=== PATIENT | male | born 1950 | race Caucasian/White ===

== ENCOUNTER → 2017-12-19 11:33 | Outpatient (CLI) | payer MEDICARE, SELFPAY | PROVIDERS: Family Provider Family Medicine; PCP Family Medicine; Visit Provider Family Medicine | DX: E03.9 Hypothyroidism, unspecified (principal) | CPT/HCPCS: 36415; 84443 ==

== ENCOUNTER → 2018-02-03 10:02 | Outpatient (CLI) | payer MEDICARE, SELFPAY ==
[2018-02-03 11:45] LABS: PSA,Total- Diagnostic < 0.01 ng/mL (0.0-4.0)
== END ==
PROVIDERS: Family Provider Family Medicine; PCP Family Medicine; Visit Provider Urology
DX: C61 Malignant neoplasm of prostate (principal)
CPT/HCPCS: 36415; 84153

== ENCOUNTER → 2018-03-19 07:44 | Outpatient (CLI) | payer MEDICARE, SELFPAY ==
[2018-03-19 10:47] LABS: Anion Gap 6 (5-15); BUN 18 mg/dL (7-18); BUN/Creat Ratio 17.3 RATIO (10-20); Chloride 105 mmol/L (98-107); Cholesterol 125 mg/dL (200); Creatinine, Serum 1.04 mg/dL (0.70-1.30); EST Glomerular Filtration Rate 75 mL/min (>60); Est Glom Filt Rate - Afr Amer 91 mL/min (>60); Glucose 99 mg/dL (74-106); High Density Lipoprotein 37 mg/dL; Potassium 3.3 mmol/L (3.5-5.1); Sodium Level 141 mmol/L (136-145); Triglycerides 83 mg/dL; Very Low Density Lipoprotein 17 mg/dL (5-40)
[2018-03-19 11:39] LABS: Hemoglobin A1c 5.9 % (4.2-6.3)
== END ==
PROVIDERS: Family Provider Family Medicine; PCP Family Medicine; Visit Provider Family Medicine
DX: Z00.00 Encounter for general adult medical examination without abnormal findings (principal); I10 Essential (primary) hypertension; E03.9 Hypothyroidism, unspecified
CPT/HCPCS: 36415; 80048; 80061; 83036; 84443

== ENCOUNTER → 2018-08-04 09:27 | Outpatient (CLI) | payer MEDICARE, SELFPAY ==
[2018-08-04 11:29] LABS: PSA,Total- Diagnostic < 0.01 ng/mL (0.0-4.0)
== END ==
PROVIDERS: Family Provider Family Medicine; PCP Family Medicine; Referring Provider Urology; Visit Provider Urology
DX: C61 Malignant neoplasm of prostate (principal)
CPT/HCPCS: 36415; 84153

== ENCOUNTER 2018-09-14 10:52 | Inpatient (IN) | payer MEDICARE, SELFPAY ==
[2018-08-27 08:36] VITALS: BP 138/88; PULSE 89; RESP 16; TEMP 36.6; O2SAT 95; BMI 27.1
--- NOTE | 2018-08-27 08:43 | SDCEKG_ITS ---
Test Reason : Blood Pressure : / mmHG Vent. Rate : 073 BPM Atrial Rate : 073 BPM P-R Int : 160 ms QRS Dur : 106 ms QT Int : 368 ms P-R-T Axes : 056 -19 067 degrees QTc Int : 405 ms Normal sinus rhythm Moderate voltage criteria for LVH, may be normal variant Borderline ECG Confirmed by ANITA ALLEN, HERACLIO ([id number]), senior editor ANA GRAFF ([id number]) on 08/31/2018 3:52:40 PM Referred By: Geovanny Graff Confirmed By:HERACLIO HOWARD MD
--- NOTE | 2018-08-27 09:10 | RAD_ITS ---
STUDY: X-RAY CHEST REASON FOR EXAM: Male, 67 years old. Preoperative evaluation. TECHNIQUE: PA and lateral views of the chest. COMPARISON: Comparison is made with prior examination dated November 05, 2016. FINDINGS: Hyperinflation. The lungs are clear. There is no demonstrated pleural abnormality. Normal size heart. Normal mediastinum and carlo. Normal visualized pulmonary arteries. There is atherosclerotic tortuosity of the aortic arch and descending thoracic aorta. There are diffuse degenerative changes of the visualized thoracic spine. Normal visualized ribs, clavicles, and shoulders. There is no demonstrated abnormality of the visualized soft tissue structures of the upper abdomen. RAD/Chest PA and Lateral IMPRESSION: No acute abnormality is seen. Electronically Signed: Pardeep Nice MD at 9:43 EDT Tel [phone], Service support ,
[2018-08-27 09:13] LABS: Hematocrit 43.7 % (40-54); Hemoglobin 14.4 g/dl (13.0-16.5); Mean Corpuscular Hgb 30.3 pg (27.0-32.0); Mean Corpuscular Volume 91.8 fL (80-94); Mean Platelet Vol. 12.5 fl (6.2-12.0); Platelet Count 244 K/mm3 (150-450); RBC Distribution Width CV 13.9 % (11.6-14.6); RBC Distribution Width SD 46.4 fl (35.1-43.9); Red Blood Count 4.76 M/mm3 (4.6-6.2); White Blood Count 6.1 K/mm3 (4.4-11.0)
[2018-08-27 09:16] LABS: Scan Indicated on CBC? Y/N NO
[2018-08-27 09:38] LABS: Anion Gap 7 (5-15); BUN 16 mg/dL (7-18); BUN/Creat Ratio 16.4 RATIO (10-20); Calcium,Total 9.4 mg/dL (8.5-10.1); Chloride 105 mmol/L (98-107); Creatinine, Serum 0.97 mg/dL (0.70-1.30); EST Glomerular Filtration Rate 81 mL/min (>60); Est Glom Filt Rate - Afr Amer 98 mL/min (>60); Glucose 136 mg/dL (74-106); Potassium 3.4 mmol/L (3.5-5.1); Sodium Level 142 mmol/L (136-145)
--- NOTE | 2018-09-09 11:55 | CASEMGMT ---
Call placed to patient ([phone]) to discuss discharge needs after upcoming surgery. No answer, voicemail left. Helen Younger LPN Clinical Support
[2018-09-14] VITALS (7 sets, daily range): BP systolic 126–153; BP diastolic 55–82; PULSE 69–89; RESP 12–18; TEMP 35.9–37.1; O2SAT 95–100; BMI 27.1
[2018-09-14] MEDS: Acetaminophen 500 MG Tablet 1000 MG PO ×2 (11:38→22:01)
[2018-09-14] MEDS: oxyCODONE HCl Cr 10 MG Tablet PO (11:38)
[2018-09-14 11:55] LABS: Bedside Glucose 101 mg/dL (70-110)
--- NOTE | 2018-09-14 13:00 | FEM._PTH ---
PATIENT: GLENDA DERAS LOC: MS3 U#:[id number] AGE/SX: 67/M [place] [facility] [place]: Dr. Nevin Pedro MD : 1950 BED: 1 DIS: 09/16/2018 SPEC #: [id number] RECD: 09/14/18 16:03 STATUS: JENNIFER REQ #: [id number] JEFF: 09/14/18 13:[address]: Geovanny Graff DEPT: SURGICAL PATHOLOGY RECD BY: Reg Méndez ENTERED: 09/15/18 11:43 SP TYPE: FEM HEAD OTHR DR: MD Dr. Nevin Alvarez MD Dr. Paul Nielsen, MD Dr. Rodney Miller, MD Tissues: Hip, NOS Procedures: Decalcification bone/plaque Surgery Specimen Level IV Comments: @ Ordering doctor for DEC edited from to [email or web address] Gates by LINWOOD at 09/15/18 1615 @ Ordering doctor for SUIV edited from to [email or web address] by LINWOOD at 09/15/18 1615 @ Submitting doctor edited from to DR.[email or web address] Gates by LINWOOD at 09/15/18 1615 HEADER OPERATION: Total hip replacement PRE-OP DIAGNOSIS: Osteoarthritis left hip TISSUE SUBMITTED: Femoral head and tissue MICROSCOPIC DIAGNOSIS Left femoral head and tissue, total hip replacement/resection: Femoral head with degenerative osteoarthritic changes. LYNETTE:idris 09/21/18 MICROSCOPIC DESCRIPTION Slides are reviewed. GROSS DESCRIPTION Received in fixative is one container labeled with the patient's name and designated femoral head and tissue. The specimen consists of a justice femoral head measuring 5 x 5 x 4.5 cm. The articular surface displays prominent osteophyte formation, eburnation and bone erosion. Also present in the container are detached pieces of tissue consisting entirely of bone reamlngs measuring in aggregate 7 x 7 x 3 cm. Pattern Wheel Maker sections are submitted in two cassettes after decalcification as follows: 1 - bone reamings, 2 - femoral head. / LYNETTE:idris 09/15/18 TC:5 CPT: 16166, 32605
[2018-09-14] MEDS: Cefazolin 2 GM in 0.9% Normal Saline 100 ML IV (13:51)
--- NOTE | 2018-09-14 15:35 | RAD_ITS ---
STUDY: X-RAY - PELVIS AND LEFT HIP REASON FOR EXAM: Male, 67 years old. Postop left hip. TECHNIQUE: 2 views of the pelvis and hip. COMPARISON: AP pelvis with 3 additional images of left hip February 2017. FINDINGS: There is a non-specific bowel gas pattern. There are multiple calcified phleboliths. Normal visualized bilateral sacroiliac joints and sacrum. There are cortical and enthesophytes at the lateral margins of the bilateral iliac wings. Normal bilateral superior and inferior pubic rami. Normal pubic symphysis. Normal bilateral ischial tuberosities. Stone noted of osteoarthritic degenerative change of the right hip. The patient has undergone left total hip arthroplasty. Following resection of the left femoral head and neck, a metal bipolar hip prosthesis was placed. The acetabular and femoral components appear well seated, and in anatomic alignment. There is stable osteoarthritic spur formation of the acetabular rim. Gas lucencies overlapping the upper consistent with recent surgery. There are numerous metal skin jose along the lateral soft tissues. No demonstrated acute fracture. RAD/Hip Min 2 Views (Portable) IMPRESSION: Status post left total hip arthroplasty. Electronically Signed: Ulisses Patton MD at 16:50 EST , Service support ,
[2018-09-14 16:16] LABS: Bedside Glucose 90 mg/dL (70-110)
--- NOTE | 2018-09-14 16:41 | CON.PCM_ITS ---
Problem List (1) Status post total replacement of left hip Status: Acute (2) History of prostate cancer Status: Chronic (3) History of renal cell carcinoma Status: Chronic (4) Hyperlipidemia Status: Chronic (5) Hypertension Status: Chronic (6) Hypothyroidism Status: Chronic (7) Type 2 diabetes mellitus Status: Chronic Reason for Consult Date of Consultation: 09/14/18 Reason for Consultation: Postoperative medical management. History of Present Illness: The patient is a 67 year old M with past medical history as mentioned above who admitted today for elective total left hip replacement and I am seeing this patient in consultation for postoperative medical management. At this time, patient complained of left hip pain which is rated about 4-5 out of 10 in severity. He denies any other complaints. He denied chest pain or shortness of breath. He denied abdominal pain, nausea or vomiting. He denies cough or sputum production. He denies urinary symptoms. He had a history of type 2 diabetes mellitus and he has been on metformin and his blood sugar has been under control. His hemoglobin A1c was 6% on August 27, 2018. He had a history of renal cell carcinoma status post left nephrectomy and his kidney function has been stable. He had a story of hypertension and his blood pressure has been under control with Norvasc and enalapril. At this time, his vital signs are stable. His preoperative routine blood work that was done on August 27, 2018 reviewed and was unremarkable. Past Medical History Past Medical History (Chronic Problems): Chronic Problems History of prostate cancer (Chronic) History of renal cell carcinoma (Chronic) Hyperlipidemia (Chronic) Type 2 diabetes mellitus (Chronic) Hypothyroidism (Chronic) Hypertension (Chronic) Allergies Sulfa (Sulfonamide Antibiotics) Allergy (Verified 09/14/18 11:19) Rash Home Medications: Ambulatory Orders Medication Instructions Recorded Amlodipine Besylate [Norvasc] 10 mg PO DAILY 11/05/16 Enalapril Maleate [Vasotec] 20 mg PO BID 11/05/16 Levothyroxine [Synthroid] 50 mcg PO QHS 11/05/16 Multivitamin [Multiple Vitamins] 1 each PO DAILY 11/05/16 Calcium Carbonate/Vitamin D3 1 each PO DAILY 11/13/16 [Calcium 600-Vit D3 200 Tablet] Acetaminophen [Tylenol Extra 500 - 3,000 mg PO DAILY 08/27/18 Strength] Atorvastatin Calcium [Lipitor] 10 mg PO DAILY 08/27/18 Metformin HCl [Glucophage Xr] 500 mg PO DAILY 08/27/18 Surgical History: - - Left nephrectomy, back surgery. Psychiatric History: No pertinent psych hx Lives: Spouse/ Significant Other Smoking Status: Never smoker Alcohol: None Drugs: None - *Family History Maternal History Items: - - No maternal history of hypertension, diabetes or heart disease. Paternal History Items: - - No paternal history of hypertension, diabetes or heart disease. Review of Systems Constitutional: Denies: Anorexia, Chills, Fever, Weakness Eyes: Denies: Blurred vision, Double vision, Drainage, Redness HEENT: Denies: Difficulty Hearing, Ear Pain, Eye Pain, Nasal Congestion, Sore Throat Cardiovascular: Denies: Chest Pain, Chest Pressure, Chest Tightness, Heaviness, Light Headedness, Palpitations, Syncope Respiratory: Denies: Cough, Pleuritic Pain, Shortness of Breath, Sputum production, Wheezing Gastrointestinal: Denies: Abdominal Pain, Constipation, Diarrhea, Nausea, Vomiting Genitourinary: Denies: Dysuria, Frequency, Hematuria Musculoskeletal: Reports: Joint Pain. Denies: Arm Pain, Back Pain, Foot Pain Skin: Denies: Dryness, Rash Neurological: Denies: Balance problems, Double vision, Change in Speech, Slurred speech, Confusion, Headaches, Incoordination, Numbness Psychiatric: Denies: Anxiety, Depression Endocrine: Denies: Change in Body Habitus, Polydipsia Patient Problems: Active and Suspected Problems Status post total replacement of left hip (Acute) - Physical Exam General: Alert, Oriented x3, Cooperative, No apparent distress HEENT: Atraumatic, PERRLA, EOMI, Normocephalic Oral: Moist Mucosa, No Gingival or Mucosal Lesions/ Ulcerations Neck: Supple, No JVD, Negative Carotid Bruits, Trachea Midline, Thyroid Normal Size and Texture Lungs: Clear to auscultation, Normal air movement, No rhonchi, No wheeze, No rales Cardiovascular: Regular rate, Regular Rhythm, Normal S1, Normal S2, No murmurs, PMI Normal Abdomen: Bowel Sounds Present, Soft, Non Tender, Non-Distended, No Hepato- splenomegaly Extremities: No clubbing, No cyanosis, No edema Skin: No rashes, No breakdown Lymphatic: No Cervical, Supraclavicular, or Inguinal Adenopathy Neurological: Cranial nerves II-XII grossly intact, Motor Exam 5/5 strength throughout Psych/Mental Status: Normal Affect, Appropriate, Alert and oriented to time, place, person, mood and affect Vital Signs Temp Pulse Resp BP Pulse Ox 97.0 F L 81 18 141/74 H 100 09/14/18 16:00 09/14/18 16:00 09/14/18 16:00 09/14/18 16:00 09/14/18 16:00 Oxygen Delivery Method Room Air Weight: 162 lb 14.746 oz Body Mass Index (BMI) 27.1 Finger Stick Blood Glucose 90 Intake and Output for Last 24 Hours 09/12/18 09/13/18 09/14/18 23:59 23:59 23:59 Intake Total 1400 / 1400 Balance 1400 / 1400 POC Glucose 09/14/18 09/14/18 16:02 11:34 POC Glucose 90 101 Assessment/Plan All Active Problems Status post total replacement of left hip (Acute) This is a 67 years old male patient admitted for elective left total hip replacement and I am seeing this patient in consultation for postoperative medical management. #1 status post left total hip replacement: This was an electively for left hip osteoarthritis. Preoperative routine blood work was unremarkable. At this time, his vital signs are stable. He is on IV cefazolin for perioperative prophylaxis. Started on MS Contin twice daily and OxyIR as needed for pain. CBC and BMP ordered for tomorrow. Orthopedic surgery is managing. #2 type 2 diabetes mellitus: Blood sugars seem to be under control. Hemoglobin A1c was 6% on August 27, 2018. Plan to continue metformin, Accu-Cheks, insulin sliding scale. #3 hypertension: Blood pressure stable, continue Norvasc and lisinopril. #4 history of prostate cancer: Status post surgery, stable, in remission. #5 history of renal cell carcinoma: Status post left nephrectomy, stable, in remission. #6 hypothyroidism: Stable, TSH was normal on August 27, 2018, continue levothyroxine. #7 hyperlipidemia: Continue statins. #8 DVT prophylaxis: SCDs. This note was generated with Funky Androidation software. It may contain incorrect words, spelling, and punctuation that were not noted in checking the note before signing. Code Visit Inpatient E&M: 89886 Init Hosp L2
[2018-09-14] MEDS: Ketorolac 15 MG/ML Vial IV (17:20)
[2018-09-14 17:30] LABS: Bedside Glucose 141 mg/dL (70-110)
[2018-09-14] MEDS: Lactated Ringers 1,000 ML 125 ML IV (18:44)
[2018-09-14] MEDS: Cefazolin 1 GM/50 ML BAG IV (20:00)
[2018-09-14] MEDS: Aspirin 325 MG Tablet PO (21:59)
[2018-09-14] MEDS: Senna/Docusate Sodium 1 Tablet 2 TABLET PO (21:59)
[2018-09-14] MEDS: Levothyroxine 50 MCG Tablet PO (22:00)
[2018-09-14] MEDS: morphine SR 15 MG Tablet PO (22:00)
[2018-09-14] MEDS: Lisinopril 20 MG Tablet PO (22:00)
[2018-09-14 22:11] LABS: Bedside Glucose 109 mg/dL (70-110)
[2018-09-15] MEDS: 0.9% NaCl Peripheral Flush Adult/Peds IV (00:13)
[2018-09-15] MEDS: Ondansetron 4 MG/2 ML Vial IV (00:13)
[2018-09-15] MEDS: Cefazolin 1 GM/50 ML BAG IV ×2 (02:33→07:38)
[2018-09-15 02:38] VITALS: BP 118/65; PULSE 74; RESP 16; TEMP 36.7; O2SAT 97
[2018-09-15] MEDS: Acetaminophen 500 MG Tablet 1000 MG PO ×3 (06:34→21:56)
[2018-09-15 06:41] LABS: Bedside Glucose 126 mg/dL (70-110)
[2018-09-15 06:55] LABS: Hematocrit 32.9 % (40-54); Hemoglobin 10.9 g/dl (13.0-16.5); Mean Corp Hgb Conc 33.1 g/gl (32-36); Mean Corpuscular Hgb 30.8 pg (27.0-32.0); Mean Corpuscular Volume 92.9 fL (80-94); Mean Platelet Vol. 12.8 fl (6.2-12.0); Platelet Count 182 K/mm3 (150-450); RBC Distribution Width CV 14.2 % (11.6-14.6); RBC Distribution Width SD 46.4 fl (35.1-43.9); Red Blood Count 3.54 M/mm3 (4.6-6.2); White Blood Count 10.3 K/mm3 (4.4-11.0)
--- NOTE | 2018-09-15 06:59 | PCM.OP.BLANK ---
Operative Report Date of Procedure: 09/14/18 Preoperative diagnosis: Left hip primary osteoarthritis Postoperative diagnosis: Same Operation: [Left] total hip replacement surgery Surgeon: Dr. Geovanny Graff MD Machine Clothing Worker: Ashia Gonzales PA-C Anesthesia: Spinal Anesthesiologist Dr. Jackson Special medications: IV [Ancef], IV Tranexamic acid Indications for surgery : Patient is a [ 67]-year-old male] with a long-standing history of [left] severe hip pain that has failed adequate nonoperative treatment. Due to persistent pain and disability, they decided to proceed with hip replacement surgery. Appropriate informed consent was obtained and signed. Appropriate medical workup was performed preoperatively and patient was deemed safe for surgery by the anesthesia department as well. gynecological assistant, physician retail administrative assistant, was utilized throughout the entire procedure. They were vital in helping with patient positioning, holding of retractors, exposing the tissues adequately for safe completion of the procedure including cutting of the bone, helping package clerk appropriate alignment and sizing of the components, implantation of the components, as well as wound closure, bandage application, and safe patient transfer. Without resident assistant cna, physician retail administrative assistant, surgical time would have been significantly increased, and surgical outcome would have been less optimal. Operative findings: Patient had severe arthritis of the involved hip joint. They underwent a small posterior approach to the hip. We utilized a size [6 press-fit Accolade 2 stem] 127 degree neck angle, a press fit acetabular component size [52] cluster, Trident X3 10? hooded polyethylene liner with a 36 mm inner diameter, a Biolox ceramic femoral head size [36] with a +0 neck length. This reproduced their anatomy nicely. Clinically good leg lengths were noted. Good hip stability through range of motion with no undue pistoning. Standard wound closure in layers, followed by jose, followed by Mepilex dressing Details of procedure: Patient was taken to the operating room and transferred to the operating table. Given appropriate anesthetic agent by that department. Patient was then rolled into a lateral decubitus position with the involved painful hip up in the air. Appropriate timeouts had been performed. Hip had been appropriately marked with my initials. Padded anterior and posterior position was utilized. Axillary roll placed. MARTY hose and SCDs on the nonoperative limb utilized throughout the procedure. Tranexamic acid and IV antibiotics given preoperatively. Operative lower extremity was prepped padded and draped in the usual orthopedic sterile fashion for the procedure. I injected the pain relieving solution in the standard sterile technique of the soft tissues of the hip carefully. Incision was made curving over the tip of the greater trochanter posteriorly. Full thickness skin flaps are raised down on the fascia johnathan. Fascia johnathan was opened in length with our incision. Charnley self-retaining hip retractor was carefully placed by the surgeon. Leg was appropriately rotated and held by the retail administrative assistant. Retractor was used to lift the abductors anteriorly to visualize the piriformis tendon and external rotators. Area was infiltrated with pain relieving cocktail. Piriformis tendon and external rotators released off the greater trochanter with the Bovie. Tagging suture was placed in each of these separately. We then split the tissue superior to the piriformis tendon through capsule and onto the pelvis. Acetabular labrum was also divided. With traction and manipulation arthritic femoral head was dislocated from the acetabulum. Retractors were carefully placed around the femoral neck. Cutting guide was utilized to map out the proposed cut approximately 1 fingerbreadth above the lesser trochanter. This femoral neck cut was carried out with a saw. Arthritic femoral head removed and measured and inspected. Inferior acetabular retractor was placed by the surgeon, held by the retail administrative assistant. Bone hook utilized to pull the proximal femur anteriorly. Labrum removed from about the acetabulum a long knife. Tissue removed from the depth of the acetabulum with the Bovie. Arthritic acetabulum was noted. We began reaming with the appropriate sized reamer based on the measurement of the femoral head. Reaming was done with 45? of abduction, 20? of anteversion, reproducing there anatomy. Reaming was done incrementally up to the appropriate size creating a smooth cylindrical acetabulum and was done down to healthy bone. Trial acetabular component 1 millimeters smaller than the largest reamer was utilized with the outrigger device. Appropriate abduction and anteversion confirmed as well as size and position of cup. We irrigated with bulb syringe saline. Appropriate acetabular opponent was opened and hammered into position with the outrigger device, with 45? of abduction and 20 degrees of anteversion. We could see through the hole in the cup it was adequately down onto the bone in the pelvis. Good stability was noted. Trial liner with a 10? florian was appropriately positioned. Any anterior and/ or posterior osteophytes removed with an osteotome, rondure. Acetabular retractors removed. A proximal femoral elevator utilized. Held by the retail administrative assistant. We used a sharp awl entering down inside the bone of the proximal femur. Utilized the hollie cutting osteotome in the proximal lateral greater trochanteric region. The fragment removed. Broaching was then done from the smallest broach, upto the appropriate size. Small nondisplaced fracture of the very proximal extent of the femur posteriorly noted not extending into the calcar and not extending below the trochanter noted. good stability of the size 6 broach was confirmed. We then trialed the construct with a standard neck length and appropriate sized femoral head on 127? angle neck. We were happy with the construct. Good stability to flexion, rotation by the retail administrative assistant. At this point trials removed. I now placed the appropriate polyethylene acetabular liner into a clean dry previously placed shell. This was hammered into position. Suction device was used to confirm its stability. We now exposed the proximal femur with appropriate retractors in place, held by the retail administrative assistant, actual femoral stem was checked, opened, and then hammered into the proximal femur and seated down to a similar position as the trial had. We now again trialed appropriate neck length upon. It was then opened. Now impacted the appropriate sized femoral head, neck construct onto the clean dried trunion. Was noted to be stable. Hip was inspected, and joint was reduced for a final time. Good hip stability and leg lengths noted. This was then irrigated with saline and cleaned. Next the remainder of the pain relieving solution was injected carefully throughout the soft tissues of the hip joint. Closure was carried out with a combination of #1 Vicryl, running #2 strata fix in the fascia johnathan, followed by mid layer #1 Vicryl with #1 strata fix running. Next running 0 strata fix, followed by skin jose, Xeroform, Mepilex dressing. We placed MARTY hose and SCD on the operative leg. Patient awoken from the anesthetic and transferred back to room bed in recovery room in satisfactory condition. Patient will be admitted for pain management, PT, IV antibiotics, medication for DVT prevention. Hospitalist consulted for postoperative medical management. Hopeful discharge to home in 1-3 days This note was generated with Kabbee dictation software. It may contain incorrect words, spelling, and punctuation that were not noted in checking the note before signing.
[2018-09-15 07:02] LABS: Scan Indicated on CBC? Y/N NO
--- NOTE | 2018-09-15 07:05 | OP.PCM_ITS ---
Operative Report Date of Procedure: 09/14/18 Preoperative diagnosis: Left hip primary osteoarthritis Postoperative diagnosis: Same Operation: [Left] total hip replacement surgery Surgeon: Dr. Geovanny Grfaf MD Product Development Specialist: Ashia Gonzales PA-C Anesthesia: Spinal Anesthesiologist Dr. Jackson Special medications: IV [Ancef], IV Tranexamic acid Indications for surgery : Patient is a [ 67]-year-old male] with a long-standing history of [left] severe hip pain that has failed adequate nonoperative treatment. Due to persistent pain and disability, they decided to proceed with hip replacement surgery. Appropriate informed consent was obtained and signed. Appropriate medical workup was performed preoperatively and patient was deemed safe for surgery by the anesthesia department as well. medical billing assistant, physician accounting manager assistant controller, was utilized throughout the entire procedure. They were vital in helping with patient positioning, holding of retractors, exposing the tissues adequately for safe completion of the procedure including cutting of the bone, helping metrology technician appropriate alignment and sizing of the components, implantation of the components, as well as wound closure, bandage application, and safe patient transfer. Without surgical elastic knitter hand frame, physician accounting manager assistant controller, surgical time would have been significantly increased, and surgical outcome would have been less optimal. Operative findings: Patient had severe arthritis of the involved hip joint. They underwent a small posterior approach to the hip. We utilized a size [6 press-fit Accolade 2 stem] 127 degree neck angle, a press fit acetabular component size [52] cluster, Trident X3 10? hooded polyethylene liner with a 36 mm inner diameter, a Biolox ceramic femoral head size [36] with a +0 neck length. This reproduced their anatomy nicely. Clinically good leg lengths were noted. Good hip stability through range of motion with no undue pistoning. S tandard wound closure in layers, followed by jose, followed by Mepilex dressing Details of procedure: Patient was taken to the operating room and transferred to the operating table. Given appropriate anesthetic agent by that department. Patient was then rolled into a lateral decubitus position with the involved painful hip up in the air. Appropriate timeouts had been performed. Hip had been appropriately marked with my initials. Padded anterior and posterior position was utilized. Axillary roll placed. MARTY hose and SCDs on the nonoperative limb utilized throughout the procedure. Tranexamic acid and IV antibiotics given preoperatively. Operative lower extremity was prepped padded and draped in the usual orthopedic sterile fashion for the procedure. I injected the pain relieving solution in the standard sterile technique of the soft tissues of the hip carefully. Incision was made curving over the tip of the greater trochanter posteriorly. Full thickness skin flaps are raised down on the fascia johnathan. Fascia johnathan was opened in length with our incision. Charnley self-retaining hip retractor was carefully placed by the surgeon. Leg was appropriately rotated and held by the accounting manager assistant controller. Retractor was used to lift the abductors anteriorly to visualize the piriformis tendon and external rotators. Area was infiltrated with pain relieving cocktail. Piriformis tendon and external rotators released off the greater trochanter with the Bovie. Tagging suture was placed in each of these separately. We then split the tissue superior to the piriformis tendon through capsule and onto the pelvis. Acetabular labrum was also divided. With traction and manipulation arthritic femoral head was dislocated from the acetabulum. Retractors were carefully placed around the femoral neck. Cutting guide was utilized to map out the proposed cut approximately 1 fingerbreadth above the lesser trochanter. This femoral neck cut was carried out with a saw. Arthritic femoral head removed and measured and inspected. Inferior acetabular retractor was placed by the surgeon, held by the accounting manager assistant controller. Bone hook utilized to pull the proximal femur anteriorly. Labrum removed from about the acetabulum a long knife. Tissue removed from the depth of the acetabulum with the Bovie. Arthritic acetabulum was noted. We began reaming with the appropriate sized reamer based on the me asurement of the femoral head. Reaming was done with 45? of abduction, 20? of anteversion, reproducing there anatomy. Reaming was done incrementally up to the appropriate size creating a smooth cylindrical acetabulum and was done down to healthy bone. Trial acetabular component 1 millimeters smaller than the largest reamer was utilized with the outrigger device. Appropriate abduction and anteversion confirmed as well as size and position of cup. We irrigated with bulb syringe saline. Appropriate acetabular opponent was opened and hammered into position with the outrigger device, with 45? of abduction and 20 degrees of anteversion. We could see through the hole in the cup it was adequately down onto the bone in the pelvis. Good stability was noted. Trial liner with a 10? florian was appropriately positioned. Any anterior and/ or posterior osteophytes removed with an osteotome, rondure. Acetabular retractors removed. A proximal femoral elevator utilized. Held by the accounting manager assistant controller. We used a sharp awl entering down inside the bone of the proximal femur. Utilized the hollie cutting osteotome in the proximal lateral greater trochanteric region. The fragment removed. Broaching was then done from the smallest broach, upto the appropriate size. Small nondisplaced fracture of the very proximal extent of the femur posteriorly noted not extending into the calcar and not extending below the trochanter noted. good stability of the size 6 broach was confirmed. We then trialed the construct with a standard neck length and appropriate sized femoral head on 127? angle neck. We were happy with the construct. Good stability to flexion, rotation by the accounting manager assistant controller. At this point trials removed. I now placed the appropriate polyethylene acetabular liner into a clean dry previously placed shell. This was hammered into position. Suction device was used to confirm its stability. We now exposed the proximal femur with appropriate retractors in place, held by the accounting manager assistant controller, actual femoral stem was checked, opened, and then hammered into the proximal femur and seated down to a similar position as the trial had. We now again trialed appropriate neck length upon. It was then opened. Now impacted the appropriate sized femoral head, neck construct onto the clean dried trunion. Was noted to be stable. Hip was inspected, and joint was reduced for a final time. Good hip stability and leg lengths noted. This was then irrigated with saline and cleaned. Next the remainder of the pain relieving solution was injected carefully throughout the soft tissues of the hip joint. Closure was carried out with a combination of #1 Vicryl, running #2 strata fix in the fascia johnathan, followed by mid layer #1 Vicryl with #1 strata fix running. Next running 0 strata fix, followed by skin jose, Xeroform, Mepilex dressing. We placed MARTY hose and SCD on the operative leg. Patient awoken from the anesthetic and transferred back to room bed in recovery room in satisf actory condition. Patient will be admitted for pain management, PT, IV antibiotics, medication for DVT prevention. Hospitalist consulted for postoperative medical management. Hopeful discharge to home in 1-3 days This note was generated with [employer] software. It may contain incorrect words, spelling, and punctuation that were not noted in checking the note before signing.
[2018-09-15 07:07] LABS: Anion Gap 8 (5-15); BUN 13 mg/dL (7-18); BUN/Creat Ratio 14.8 RATIO (10-20); Chloride 103 mmol/L (98-107); Creatinine, Serum 0.88 mg/dL (0.70-1.30); EST Glomerular Filtration Rate 91 mL/min (>60); Est Glom Filt Rate - Afr Amer 110 mL/min (>60); Estimated Creatinine Clearance 67.27 ml/min; Glucose 118 mg/dL (74-106); Potassium 3.4 mmol/L (3.5-5.1); Sodium Level 138 mmol/L (136-145)
--- NOTE | 2018-09-15 07:20 | PCM.PN.ORT ---
Patient Problems: Active and Suspected Problems Status post total replacement of left hip (Acute) Subjective: Patient is postoperative day #1 from left total hip replacement. He is feeling well. Pain is controlled. Denies chest pain or shortness of breath. Denies productive cough. Patient does not feel safe going home today. He has more help coming tomorrow. He does not think his can manage him today. His calf pain or swelling. Objective: Left hip bandage is on clean and dry. No obvious blood on the bandage. No severe swelling about the hip. Leg lengths are clinically equal. No calf pain or swelling. Negative Homans sign. Good active motion toes and ankles. X-rays AP pelvis and lateral of left hip shows a press-fit left total hip replacement in good position without obvious loosening failure or fracture. X-ray report reviewed Laboratory work and vital signs reviewed Note from the hospitalist access consultant reviewed - Physical Exam Vital Signs Temp Pulse Resp BP Pulse Ox 98.1 F 74 16 118/65 97 09/15/18 02:38 09/15/18 02:38 09/15/18 02:38 09/15/18 02:38 09/15/18 02:38 Oxygen Delivery Method Room Air Weight: 73.9 kg Body Mass Index (BMI) 27.1 Finger Stick Blood Glucose 90 Intake and Output for Last 24 Hours 09/13/18 09/14/18 09/15/18 23:59 23:59 23:59 Intake Total 2674 / 2674 746 / 746 Balance 2674 / 2674 746 / 746 Laboratory Tests Past 24 Hrs 09/15/18 09/15/18 05:05 05:05 WBC 10.3 RBC 3.54 L Hgb 10.9 L Hct 32.9 L MCV 92.9 MCH 30.8 MCHC 33.1 RDW 14.2 RDW Differential 46.4 H Plt Count 182 MPV 12.8 H Sodium 138 Potassium 3.4 L Chloride 103 Carbon Dioxide 27.0 Anion Gap 8 BUN 13 Creatinine 0.88 Estim Creat Clear Calc 67.27 Est GFR (MDRD) Af Amer 110 Est GFR (MDRD) Non-Af 91 BUN/Creatinine Ratio 14.8 Glucose 118 H Calcium 8.0 L POC Glucose 09/15/18 09/14/18 09/14/18 06:31 21:53 17:06 POC Glucose 126 H 109 141 H 09/14/18 09/14/18 16:02 11:34 POC Glucose 90 101 Medical Necessity - Tobacco Use Smoking Status: Never smoker Assessment/Plan All Active Problems Status post total replacement of left hip (Acute) Postoperative day #1 left total hip replacement continue therapy, weightbearing as tolerated left hip. Continue hip dislocation precautions. MARTY burgess SCDs and aspirin for DVT prevention. Continue preop medications for multiple medical problems including diabetes. plan discharged home tomorrow. All of his questions answered.
--- NOTE | 2018-09-15 07:24 | PN.ORTHO_ITS ---
Patient Problems: Active and Suspected Problems Status post total replacement of left hip (Acute) Subjective: Patient is postoperative day #1 from left total hip replacement. He is feeling well. Pain is controlled. Denies chest pain or shortness of breath. Denies productive cough. Patient does not feel safe going home today. He has more help coming tomorrow. He does not think his can manage him today. His calf pain or swelling. Objective: Left hip bandage is on clean and dry. No obvious blood on the bandage. No severe swelling about the hip. Leg lengths are clinically equal. No calf pain or swelling. Negative Homans sign. Good active motion toes and ankles. X-rays AP pelvis and lateral of left hip shows a press-fit left total hip replacement in good position without obvious loosening failure or fracture. X- ray report reviewed Laboratory work and vital signs reviewed Note from the hospitalist microsoft dynamics consultant reviewed - Physical Exam Vital Signs Temp Pulse Resp BP Pulse Ox 98.1 F 74 16 118/65 97 09/15/18 02:38 09/15/18 02:38 09/15/18 02:38 09/15/18 02:38 09/15/18 02:38 Oxygen Delivery Method Room Air Weight: 73.9 kg Body Mass Index (BMI) 27.1 Finger Stick Blood Glucose 90 Intake and Output for Last 24 Hours 09/13/18 09/14/18 09/15/18 23:59 23:59 23:59 Intake Total 2674 / 2674 746 / 746 Balance 2674 / 2674 746 / 746 Laboratory Tests Past 24 Hrs 09/15/18 09/15/18 05:05 05:05 WBC 10.3 RBC 3.54 L Hgb 10.9 L Hct 32.9 L MCV 92.9 MCH 30.8 MCHC 33.1 RDW 14.2 RDW Differential 46.4 H Plt Count 182 MPV 12.8 H Sodium 138 Potassium 3.4 L Chloride 103 Carbon Dioxide 27.0 Anion Gap 8 BUN 13 Creatinine 0.88 Estim Creat Clear Calc 67.27 Est GFR (MDRD) Af Amer 110 Est GFR (MDRD) Non-Af 91 BUN/Creatinine Ratio 14.8 Glucose 118 H Calcium 8.0 L POC Glucose 09/15/18 09/14/18 09/14/18 06:31 21:53 17:06 POC Glucose 126 H 109 141 H 09/14/18 09/14/18 16:02 11:34 POC Glucose 90 101 Medical Necessity - Tobacco Use Smoking Status: Never smoker Assessment/Plan All Active Problems Status post total replacement of left hip (Acute) Postoperative day #1 left total hip replacement continue therapy, weightbearing as tolerated left hip. Continue hip dislocation precautions. MARTY burgess SCDs and aspirin for DVT prevention. Continue preop medications for multiple medical problems including diabetes. plan discharged home tomorrow. All of his questions answered.
[2018-09-15] MEDS: Aspirin 325 MG Tablet PO ×2 (07:41→22:02)
[2018-09-15] MEDS: amLODIPine 10 MG Tablet PO (07:41)
[2018-09-15] MEDS: Lisinopril 20 MG Tablet PO ×2 (07:42→22:05)
[2018-09-15] MEDS: Senna/Docusate Sodium 1 Tablet 2 TABLET PO ×2 (07:42→21:57)
[2018-09-15 08:38] VITALS: BP 152/71; PULSE 89; RESP 16; TEMP 36.6; O2SAT 97
--- NOTE | 2018-09-15 10:14 | PCM.PN.HOSP ---
Patient Problems: Active and Suspected Problems Status post total replacement of left hip (Acute) Subjective: Patient seen and examined. He is postop day 1 from left elective total hip replacement. He has no complaints and was tolerating physical therapy very well at time of review. He denied any fever or chills, cough or chest pain, any shortness of breath, abdominal pain, diarrhea or vomiting. Review of systems otherwise negative. Labs and vitals reviewed. Vitals/I&O's: Vital Signs Temp Pulse Resp BP Pulse Ox 98.1 F 74 16 118/65 97 09/15/18 02:38 09/15/18 02:38 09/15/18 02:38 09/15/18 02:38 09/15/18 02:38 Oxygen Delivery Method Room Air Weight: 162 lb 14.746 oz Body Mass Index (BMI) 27.1 Finger Stick Blood Glucose 90 Intake and Output for Last 24 Hours 09/13/18 09/14/18 09/15/18 23:59 23:59 23:59 Intake Total 3574 / 2674 746 / 746 Balance 2674 / 2674 746 / 746 General: Alert, Oriented x3, Cooperative, No apparent distress HEENT: Atraumatic, PERRLA, EOMI, Normocephalic Oral: Moist Mucosa Neck: Supple, No JVD, Negative Carotid Bruits Lungs: Clear to auscultation, Normal air movement, No rhonchi, No wheeze, No rales Cardiovascular: Regular rate, Regular Rhythm, Normal S1, Normal S2, No murmurs Abdomen: Bowel Sounds Present, Soft, Non Tender, Non-Distended, No Hepato-splenomegaly Extremities: No clubbing, No cyanosis, No edema, Capillary Refill Less than 3 Seconds, - - left hip dressing is clean and dry; minimal tenderness to palpation. Distal pulses are palpable Skin: No rashes, No breakdown Musculoskeletal: No Tenderness to Palpation of Joints or Extremities Lymphatic: No Cervical, Supraclavicular, or Inguinal Adenopathy Neurological: Cranial nerves II-XII grossly intact, Neuro grossly intact, Motor Exam 5/5 strength throughout Psych/Mental Status: Normal Affect, Appropriate, Alert and oriented to time, place, person, mood and affect Laboratory Results 09/14/18 11:34: POC Glucose 101 09/14/18 16:02: POC Glucose 90 09/14/18 17:06: POC Glucose 141 H 09/14/18 21:53: POC Glucose 109 09/15/18 05:05: WBC 10.3, RBC 3.54 L, Hgb 10.9 L, Hct 32.9 L, MCV 92.9, MCH 30.8, MCHC 33.1, RDW 14.2, RDW Differential 46.4 H, Plt Count 182, MPV 12.8 H 09/15/18 05:05: Sodium 138, Potassium 3.4 L, Chloride 103, Carbon Dioxide 27.0, Anion Gap 8, BUN 13, Creatinine 0.88, Estim Creat Clear Calc 67.27, Est GFR (MDRD) Af Amer 110, Est GFR (MDRD) Non-Af 91, BUN/Creatinine Ratio 14.8, Glucose 118 H, Calcium 8.0 L 09/15/18 06:31: POC Glucose 126 H Diagnostic Data Chest X-Ray 08/27/18 09:10 IMPRESSION: No acute abnormality is seen. Electronically Signed: Pardeep Nice MD at 9:43 EDT Tel [phone], Service support , Hip X-Ray 09/14/18 15:35 IMPRESSION: Status post left total hip arthroplasty. Electronically Signed: Ulisses Patton MD at 16:50 EST , Service support , Current Medications Acetaminophen (Tylenol) 1,000 mg PO Q8 [facility] Last Admin: 09/15/18 06:34 Dose: 1,000 mg Amlodipine Besylate (Norvasc) 10 mg PO DAILY [facility] Last Admin: 09/15/18 07:41 Dose: 10 mg Aspirin (Aspirin) 325 mg PO BID [facility] Last Admin: 09/15/18 07:41 Dose: 325 mg Atorvastatin Calcium (Lipitor) 10 mg PO QHS [facility] Insulin Human Lispro (Humalog Kwikpen (Bkc)) 0 unit SC ACHS [facility]; Protocol Last Admin: 09/15/18 06:34 Dose: Not Given Ketorolac Tromethamine (Toradol) 15 mg IV Q6H PRN PRN PRN Reason: MILD-MOD PAIN (1-5/10) Stop: 09/19/18 15:11 Last Admin: 09/14/18 17:20 Dose: 15 mg Levothyroxine Sodium (Synthroid) 50 mcg PO QHS [facility] Last Admin: 09/14/18 22:00 Dose: 50 mcg Lisinopril (Zestril) 20 mg PO BID [facility] Last Admin: 09/15/18 07:42 Dose: 20 mg [facility] Last Admin: 09/15/18 07:38 Dose: 500 mg Morphine Sulfate (Ms Contin) 15 mg PO BID [facility] Last Admin: 09/14/18 22:00 Dose: 15 mg Ondansetron HCl (Zofran) 4 mg IV Q8H PRN PRN PRN Reason: NAUSEA Last Admin: 09/15/18 00:13 Dose: 4 mg Oxycodone HCl (Oxyir) 5 - 10 mg PO Q4H PRN PRN PRN Reason: MOD-SEVERE PAIN (4-10/10) Promethazine HCl (Phenergan) 12.5 mg IM Q6H PRN PRN; Protocol PRN Reason: NAUSEA/VOMITING Senna/Docusate Sodium (Senokot-S, Marina-Colace) 2 tablet PO BID [facility] Last Admin: 09/15/18 07:42 Dose: 2 tablet Sodium Chloride () 5 - 30 ml IV UD PRN PRN Reason: SALINE FLUSH Last Admin: 09/15/18 00:13 Dose: 10 ml Medical Necessity - Tobacco Use Smoking Status: Never smoker Assessment/Plan All Active Problems Status post total replacement of left hip (Acute) 1. Left hip osteoarthritis s/p left total hip replacement today is POD 1. Has no complaints and tolerated physical therapy well. pain management per ortho encourage incentive spirometry use. on PO aspirin 325mg bid for DVT prophylaxis per ortho PT/OT on boar 2. Type 2 Diabetes mellitus blood sugars well controlled On metformin. insulin sliding scale. Accu-Cheks AC at bedtime. 3. Hypokalemia: K is 3.4. Will replace and monitor 4. Hypertension: stable. On norvasc and lisinopril. 5. History of prostate cancer s/p surgery: in remission. Stable 6. History of renal cell carcinoma status post left nephrectomy: Stable 7. Hypothyroidism: Stable on Synthroid. 8. Hyperlipidemia: On statin DVT Prophylaxis: Aspirin 325 mg twice daily. Code Visit Inpatient E&M: 36229 Subs Hosp L2
--- NOTE | 2018-09-15 10:18 | PN_ITS ---
Patient Problems: Active and Suspected Problems Status post total replacement of left hip (Acute) Subjective: Patient seen and examined. He is postop day 1 from left elective total hip replacement. He has no complaints and was tolerating physical therapy very well at time of review. He denied any fever or chills, cough or chest pain, any shortness of breath, abdominal pain, diarrhea or vomiting. Review of systems otherwise negative. Labs and vitals reviewed. Vitals/I&O's: Vital Signs Temp Pulse Resp BP Pulse Ox 98.1 F 74 16 118/65 97 09/15/18 02:38 09/15/18 02:38 09/15/18 02:38 09/15/18 02:38 09/15/18 02:38 Oxygen Delivery Method Room Air Weight: 162 lb 14.746 oz Body Mass Index (BMI) 27.1 Finger Stick Blood Glucose 90 Intake and Output for Last 24 Hours 09/13/18 09/14/18 09/15/18 23:59 23:59 23:59 Intake Total 6054 / 2674 746 / 746 Balance 2674 / 2674 746 / 746 General: Alert, Oriented x3, Cooperative, No apparent distress HEENT: Atraumatic, PERRLA, EOMI, Normocephalic Oral: Moist Mucosa Neck: Supple, No JVD, Negative Carotid Bruits Lungs: Clear to auscultation, Normal air movement, No rhonchi, No wheeze, No rales Cardiovascular: Regular rate, Regular Rhythm, Normal S1, Normal S2, No murmurs Abdomen: Bowel Sounds Present, Soft, Non Tender, Non-Distended, No Hepato- splenomegaly Extremities: No clubbing, No cyanosis, No edema, Capillary Refill Less than 3 Seconds, - - left hip dressing is clean and dry; minimal tenderness to palpation. Distal pulses are palpable Skin: No rashes, No breakdown Musculoskeletal: No Tenderness to Palpation of Joints or Extremities Lymphatic: No Cervical, Supraclavicular, or Inguinal Adenopathy Neurological: Cranial nerves II-XII grossly intact, Neuro grossly intact, Motor Exam 5/5 strength throughout Psych/Mental Status: Normal Affect, Appropriate, Alert and oriented to time, place, person, mood and affect Laboratory Results 09/14/18 11:34: POC Glucose 101 09/14/18 16:02: POC Glucose 90 09/14/18 17:06: POC Glucose 141 H 09/14/18 21:53: POC Glucose 109 09/15/18 05:05: WBC 10.3, RBC 3.54 L, Hgb 10.9 L, Hct 32.9 L, MCV 92.9, MCH 30.8, MCHC 33.1, RDW 14.2, RDW Differential 46.4 H, Plt Count 182, MPV 12.8 H 09/15/18 05:05: Sodium 138, Potassium 3.4 L, Chloride 103, Carbon Dioxide 27.0, Anion Gap 8, BUN 13, Creatinine 0.88, Estim Creat Clear Calc 67.27, Est GFR (MDRD) Af Amer 110, Est GFR (MDRD) Non-Af 91, BUN/Creatinine Ratio 14.8, Glucose 118 H, Calcium 8.0 L 09/15/18 06:31: POC Glucose 126 H Diagnostic Data Chest X-Ray 08/27/18 09:10 IMPRESSION: No acute abnormality is seen. Electronically Signed: Pardeep Nice MD at 9:43 EDT Tel [phone], Service support , Hip X-Ray 09/14/18 15:35 IMPRESSION: Status post left total hip arthroplasty. Electronically Signed: Ulisses Patton MD at 16:50 EST , Service support , Current Medications Acetaminophen (Tylenol) 1,000 mg PO Q8 [facility] Last Admin: 09/15/18 06:34 Dose: 1,000 mg Amlodipine Besylate (Norvasc) 10 mg PO DAILY [facility] Last Admin: 09/15/18 07:41 Dose: 10 mg Aspirin (Aspirin) 325 mg PO BID [facility] Last Admin: 09/15/18 07:41 Dose: 325 mg Atorvastatin Calcium (Lipitor) 10 mg PO QHS [facility] Insulin Human Lispro (Humalog Kwikpen (Bkc)) 0 unit SC ACHS [facility]; Protocol Last Admin: 09/15/18 06:34 Dose: Not Given Ketorolac Tromethamine (Toradol) 15 mg IV Q6H PRN PRN PRN Reason: MILD-MOD PAIN (1-5/10) Stop: 09/19/18 15:11 Last Admin: 09/14/18 17:20 Dose: 15 mg Levothyroxine Sodium (Synthroid) 50 mcg PO QHS [facility] Last Admin: 09/14/18 22:00 Dose: 50 mcg Lisinopril (Zestril) 20 mg PO BID [facility] Last Admin: 09/15/18 07:42 Dose: 20 mg [facility] Last Admin: 09/15/18 07:38 Dose: 500 mg Morphine Sulfate (Ms Contin) 15 mg PO BID [facility] Last Admin: 09/14/18 22:00 Dose: 15 mg Ondansetron HCl (Zofran) 4 mg IV Q8H PRN PRN PRN Reason: NAUSEA Last Admin: 09/15/18 00:13 Dose: 4 mg Oxycodone HCl (Oxyir) 5 - 10 mg PO Q4H PRN PRN PRN Reason: MOD-SEVERE PAIN (4-10/10) Promethazine HCl (Phenergan) 12.5 mg IM Q6H PRN PRN; Protocol PRN Reason: NAUSEA/VOMITING Senna/Docusate Sodium (Senokot-S, Marina-Colace) 2 tablet PO BID [facility] Last Admin: 09/15/18 07:42 Dose: 2 tablet Sodium Chloride () 5 - 30 ml IV UD PRN PRN Reason: SALINE FLUSH Last Admin: 09/15/18 00:13 Dose: 10 ml Medical Necessity - Tobacco Use Smoking Status: Never smoker Assessment/Plan All Active Problems Status post total replacement of left hip (Acute) 1. Left hip osteoarthritis s/p left total hip replacement * today is POD 1. Has no complaints and tolerated physical therapy well. * pain management per ortho * encourage incentive spirometry use. * on PO aspirin 325mg bid for DVT prophylaxis per ortho * PT/OT on boar * 2. Type 2 Diabetes mellitus * blood sugars well controlled * On metformin. * insulin sliding scale. Accu-Cheks AC at bedtime. * 3. Hypokalemia: K is 3.4. Will replace and monitor 4. Hypertension: stable. On norvasc and lisinopril. 5. History of prostate cancer s/p surgery: in remission. Stable 6. History of renal cell carcinoma status post left nephrectomy: Stable 7. Hypothyroidism: Stable on Synthroid. 8. Hyperlipidemia: On statin DVT Prophylaxis: Aspirin 325 mg twice daily. Code Visit Inpatient E&M: 96250 Subs Hosp L2
[2018-09-15] MEDS: morphine SR 15 MG Tablet PO ×2 (10:23→21:56)
[2018-09-15 12:16] LABS: Bedside Glucose 116 mg/dL (70-110)
[2018-09-15 14:38] VITALS: BP 124/65; PULSE 90; RESP 16; TEMP 37.1; O2SAT 95
--- NOTE | 2018-09-15 15:25 | CASEMGMT ---
RN KAROL Face to Face with patient for initial transition planning/care coordination assessment. RN CM introduced self and role at [facility]. Patient lying in bed, alert and oriented, at bedside. Patient willing to participate in assessment and is able to answer all questions appropriately. Care providers, pharmacy, and demographics verified. Patient wishes to discharge home and is setup with [facility] for outpatient therapy. Patient states he has no further needs or concerns at this time. CM to follow for discharge planning needs that may arise. PCP: Xavi Specialists: Marlene urologist Preferred Pharmacy: [facility] Insurance: [employer] Prescription Benefit: [employer] Living Will/HPOA: Yes, Odilia Olivia HPOA LNOK: Living Arrangements: Patient lives with in ranch style home with 3 steps to enter home. Transportation: DME/HHC: Patient has cane, walker, raised toilet seat, and shower chair at home. Disposition Plan: Patient to discharge home with outpatient therapy, family support, and follow-up plans in place. Paige MAGAÑA, RN, CM
[2018-09-15 17:05] LABS: Bedside Glucose 135 mg/dL (70-110)
[2018-09-15 20:10] VITALS: BP 111/65; PULSE 98; RESP 16; TEMP 37.7; O2SAT 95
[2018-09-15] MEDS: Atorvastatin Calcium 10 MG Tablet PO (21:56)
[2018-09-15] MEDS: Levothyroxine 50 MCG Tablet PO (21:58)
[2018-09-15 22:05] VITALS: TEMP 36.9
[2018-09-15 22:35] LABS: Bedside Glucose 132 mg/dL (70-110)
[2018-09-16 03:28] VITALS: BP 128/63; PULSE 86; RESP 16; TEMP 37; O2SAT 94
[2018-09-16] MEDS: Acetaminophen 500 MG Tablet 1000 MG PO ×2 (05:21→13:46)
[2018-09-16] MEDS: 0.9% NaCl Peripheral Flush Adult/Peds IV (05:21)
[2018-09-16 05:58] LABS: Hematocrit 37.6 % (40-54); Hemoglobin 12.5 g/dl (13.0-16.5); Mean Corp Hgb Conc 33.2 g/gl (32-36); Mean Corpuscular Hgb 30.8 pg (27.0-32.0); Mean Corpuscular Volume 92.6 fL (80-94); Mean Platelet Vol. 12.7 fl (6.2-12.0); Platelet Count 187 K/mm3 (150-450); RBC Distribution Width CV 14.1 % (11.6-14.6); RBC Distribution Width SD 46.4 fl (35.1-43.9); Red Blood Count 4.06 M/mm3 (4.6-6.2); White Blood Count 11.6 K/mm3 (4.4-11.0)
[2018-09-16 06:06] LABS: Scan Indicated on CBC? Y/N NO
[2018-09-16 06:35] LABS: Bedside Glucose 177 mg/dL (70-110)
[2018-09-16 08:18] VITALS: BP 121/58; PULSE 86; RESP 18; TEMP 36.8; O2SAT 93
--- NOTE | 2018-09-16 09:54 | PCM.PN.HOSP ---
Patient Problems: Active and Suspected Problems Status post total replacement of left hip (Acute) Subjective: Patient seen and examined. He has no complaints and feels well. He had an uneventful night. He denies any fever or chills, cough or chest pain, shortness of breath, abdominal pain, diarrhea vomiting. Review of systems otherwise negative. Labs and vitals reviewed. Patient due to be discharged today. Was by his bedside at time of review. Vitals/I&O's: Vital Signs Temp Pulse Resp BP Pulse Ox 98.3 F 86 18 121/58 H 93 09/16/18 08:18 09/16/18 08:18 09/16/18 08:18 09/16/18 08:18 09/16/18 08:18 Oxygen Delivery Method Room Air Weight: 162 lb 14.746 oz Body Mass Index (BMI) 27.1 Finger Stick Blood Glucose 90 Intake and Output for Last 24 Hours 09/14/18 09/15/18 09/16/18 23:59 23:59 23:59 Intake Total 0444 / 0885 746 / 746 Balance 3714 / 2674 746 / 746 General: Alert, Oriented x3, Cooperative, No apparent distress HEENT: Atraumatic, PERRLA, EOMI, Normocephalic Oral: Moist Mucosa Neck: Supple, No JVD, Negative Carotid Bruits Lungs: Clear to auscultation, Normal air movement, No rhonchi, No wheeze, No rales Cardiovascular: Regular rate, Regular Rhythm, Normal S1, Normal S2, No murmurs Abdomen: Bowel Sounds Present, Soft, Non Tender, Non-Distended, No Hepato-splenomegaly Extremities: No clubbing, No cyanosis, No edema, Capillary Refill Less than 3 Seconds Skin: No rashes, No breakdown Musculoskeletal: No Tenderness to Palpation of Joints or Extremities Lymphatic: No Cervical, Supraclavicular, or Inguinal Adenopathy Neurological: Cranial nerves II-XII grossly intact, Neuro grossly intact, Motor Exam 5/5 strength throughout Psych/Mental Status: Normal Affect, Appropriate, Alert and oriented to time, place, person, mood and affect Laboratory Results 09/15/18 12:05: POC Glucose 116 H 09/15/18 17:02: POC Glucose 135 H 09/15/18 22:00: POC Glucose 132 H 09/16/18 05:40: WBC 11.6 H, RBC 4.06 L, Hgb 12.5 L, Hct 37.6 L, MCV 92.6, MCH 30.8, MCHC 33.2, RDW 14.1, RDW Differential 46.4 H, Plt Count 187, MPV 12.7 H 09/16/18 06:31: POC Glucose 177 H Current Medications Acetaminophen (Tylenol) 1,000 mg PO Q8 [facility] Last Admin: 09/16/18 05:21 Dose: 1,000 mg Amlodipine Besylate (Norvasc) 10 mg PO DAILY [facility] Last Admin: 09/15/18 07:41 Dose: 10 mg Aspirin (Aspirin) 325 mg PO BID [facility] Last Admin: 09/15/18 22:02 Dose: 325 mg Atorvastatin Calcium (Lipitor) 10 mg PO QHS [facility] Last Admin: 09/15/18 21:56 Dose: 10 mg Insulin Human Lispro (Humalog Kwikpen (Bkc)) 0 unit SC [facility]; Protocol Last Admin: 09/16/18 06:36 Dose: Not Given Ketorolac Tromethamine (Toradol) 15 mg IV Q6H PRN PRN PRN Reason: MILD-MOD PAIN (1-5/10) Stop: 09/19/18 15:11 Last Admin: 09/14/18 17:20 Dose: 15 mg Levothyroxine Sodium (Synthroid) 50 mcg PO QHS [facility] Last Admin: 09/15/18 21:58 Dose: 50 mcg Lisinopril (Zestril) 20 mg PO BID [facility] Last Admin: 09/15/18 22:05 Dose: 20 mg Met[facility] ([facility]) [facility] Last Admin: 09/16/18 08:22 Dose: 500 mg Morphine Sulfate (Ms Contin) 15 mg PO BID [facility] Last Admin: 09/15/18 21:56 Dose: 15 mg Ondansetron HCl (Zofran) 4 mg IV Q8H PRN PRN PRN Reason: NAUSEA Last Admin: 09/15/18 00:13 Dose: 4 mg Oxycodone HCl (Oxyir) 5 - 10 mg PO Q4H PRN PRN PRN Reason: MOD-SEVERE PAIN (4-10/10) Promethazine HCl (Phenergan) 12.5 mg IM Q6H PRN PRN; Protocol PRN Reason: NAUSEA/VOMITING Senna/Docusate Sodium (Senokot-S, Marina-Colace) 2 tablet PO BID [facility] Last Admin: 09/15/18 21:57 Dose: 2 tablet Sodium Chloride () 5 - 30 ml IV UD PRN PRN Reason: SALINE FLUSH Last Admin: 09/16/18 05:21 Dose: 10 ml Medical Necessity - Tobacco Use Smoking Status: Never smoker Assessment/Plan All Active Problems Status post total replacement of left hip (Acute) 1. Left hip osteoarthritis s/p left total hip replacement today is POD 2. tolerating physical therapy well. pain management per ortho encourage incentive spirometry use. on PO aspirin 325mg bid for DVT prophylaxis per ortho PT/OT on boar 2. Type 2 Diabetes mellitus blood sugars well controlled On metformin. insulin sliding scale. Accu-Cheks AC at bedtime. 3. Hypokalemia: replaced. Potassium was 3.4 yesterday. Will monitor 4. Hypertension: stable. On norvasc and lisinopril. 5. History of prostate cancer s/p surgery: in remission. Stable 6. History of renal cell carcinoma status post left nephrectomy: Stable 7. Hypothyroidism: Stable on Synthroid. 8. Hyperlipidemia: On statin DVT Prophylaxis: Aspirin 325 mg twice daily. Code Visit Inpatient E&M: 28492 Subs Hosp L2
--- NOTE | 2018-09-16 09:57 | PN_ITS ---
Patient Problems: Active and Suspected Problems Status post total replacement of left hip (Acute) Subjective: Patient seen and examined. He has no complaints and feels well. He had an uneventful night. He denies any fever or chills, cough or chest pain, shortness of breath, abdominal pain, diarrhea vomiting. Review of systems otherwise negative. Labs and vitals reviewed. Patient due to be discharged today. Was by his bedside at time of review. Vitals/I&O's: Vital Signs Temp Pulse Resp BP Pulse Ox 98.3 F 86 18 121/58 H 93 09/16/18 08:18 09/16/18 08:18 09/16/18 08:18 09/16/18 08:18 09/16/18 08:18 Oxygen Delivery Method Room Air Weight: 162 lb 14.746 oz Body Mass Index (BMI) 27.1 Finger Stick Blood Glucose 90 Intake and Output for Last 24 Hours 09/14/18 09/15/18 09/16/18 23:59 23:59 23:59 Intake Total 8044 / 7900 746 / 746 Balance 6874 / 2674 746 / 746 General: Alert, Oriented x3, Cooperative, No apparent distress HEENT: Atraumatic, PERRLA, EOMI, Normocephalic Oral: Moist Mucosa Neck: Supple, No JVD, Negative Carotid Bruits Lungs: Clear to auscultation, Normal air movement, No rhonchi, No wheeze, No ral es Cardiovascular: Regular rate, Regular Rhythm, Normal S1, Normal S2, No murmurs Abdomen: Bowel Sounds Present, Soft, Non Tender, Non-Distended, No Hepato- splenomegaly Extremities: No clubbing, No cyanosis, No edema, Capillary Refill Less than 3 Seconds Skin: No rashes, No breakdown Musculoskeletal: No Tenderness to Palpation of Joints or Extremities Lymphatic: No Cervical, Supraclavicular, or Inguinal Adenopathy Neurological: Cranial nerves II-XII grossly intact, Neuro grossly intact, Motor Exam 5/5 strength throughout Psych/Mental Status: Normal Affect, Appropriate, Alert and oriented to time, place, person, mood and affect Laboratory Results 09/15/18 12:05: POC Glucose 116 H 09/15/18 17:02: POC Glucose 135 H 09/15/18 22:00: POC Glucose 132 H 09/16/18 05:40: WBC 11.6 H, RBC 4.06 L, Hgb 12.5 L, Hct 37.6 L, MCV 92.6, MCH 30.8, MCHC 33.2, RDW 14.1, RDW Differential 46.4 H, Plt Count 187, MPV 12.7 H 09/16/18 06:31: POC Glucose 177 H Current Medications Acetaminophen (Tylenol) 1,000 mg PO Q8 [facility] Last Admin: 09/16/18 05:21 Dose: 1,000 mg Amlodipine Besylate (Norvasc) 10 mg PO DAILY [facility] Last Admin: 09/15/18 07:41 Dose: 10 mg Aspirin (Aspirin) 325 mg PO BID [facility] Last Admin: 09/15/18 22:02 Dose: 325 mg Atorvastatin Calcium (Lipitor) 10 mg PO QHS [facility] Last Admin: 09/15/18 21:56 Dose: 10 mg Insulin Human Lispro (Humalog Kwikpen (Bkc)) 0 unit SC [facility]; Protocol Last Admin: 09/16/18 06:36 Dose: Not Given Ketorolac Tromethamine (Toradol) 15 mg IV Q6H PRN PRN PRN Reason: MILD-MOD PAIN (1-5/10) Stop: 09/19/18 15:11 Last Admin: 09/14/18 17:20 Dose: 15 mg Levothyroxine Sodium (Synthroid) 50 mcg PO QHS [facility] Last Admin: 09/15/18 21:58 Dose: 50 mcg Lisinopril (Zestril) 20 mg PO BID [facility] Last Admin: 09/15/18 22:05 Dose: 20 mg [facility] Last Admin: 09/16/18 08:22 Dose: 500 mg Morphine Sulfate (Ms Contin) 15 mg PO BID [facility] Last Admin: 09/15/18 21:56 Dose: 15 mg Ondansetron HCl (Zofran) 4 mg IV Q8H PRN PRN PRN Reason: NAUSEA Last Admin: 09/15/18 00:13 Dose: 4 mg Oxycodone HCl (Oxyir) 5 - 10 mg PO Q4H PRN PRN PRN Reason: MOD-SEVERE PAIN (4-10/10) Promethazine HCl (Phenergan) 12.5 mg IM Q6H PRN PRN; Protocol PRN Reason: NAUSEA/VOMITING Senna/Docusate Sodium (Senokot-S, Marina-Colace) 2 tablet PO BID [facility] Last Admin: 09/15/18 21:57 Dose: 2 tablet Sodium Chloride () 5 - 30 ml IV UD PRN PRN Reason: SALINE FLUSH Last Admin: 09/16/18 05:21 Dose: 10 ml Medical Necessity - Tobacco Use Smoking Status: Never smoker Assessment/Plan All Active Problems Status post total replacement of left hip (Acute) 1. Left hip osteoarthritis s/p left total hip replacement * today is POD 2. tolerating physical therapy well. * pain management per ortho * encourage incentive spirometry use. * on PO aspirin 325mg bid for DVT prophylaxis per ortho * PT/OT on boar * 2. Type 2 Diabetes mellitus * blood sugars well controlled * On metformin. * insulin sliding scale. Accu-Cheks AC at bedtime. * 3. Hypokalemia: replaced. Potassium was 3.4 yesterday. Will monitor 4. Hypertension: stable. On norvasc and lisinopril. 5. History of prostate cancer s/p surgery: in remission. Stable 6. History of renal cell carcinoma status post left nephrectomy: Stable 7. Hypothyroidism: Stable on Synthroid. 8. Hyperlipidemia: On statin DVT Prophylaxis: Aspirin 325 mg twice daily. Code Visit Inpatient E&M: 61780 Subs Hosp L2
[2018-09-16] MEDS: amLODIPine 10 MG Tablet PO (10:33)
[2018-09-16] MEDS: Lisinopril 20 MG Tablet PO (10:33)
[2018-09-16] MEDS: Senna/Docusate Sodium 1 Tablet 2 TABLET PO (10:33)
[2018-09-16] MEDS: Aspirin 325 MG Tablet PO (10:35)
[2018-09-16] MEDS: morphine SR 15 MG Tablet PO (10:35)
[2018-09-16 10:39] VITALS: BP 158/81; PULSE 91; RESP 16; TEMP 36.6; O2SAT 94
[2018-09-16 11:55] LABS: Bedside Glucose 172 mg/dL (70-110)
--- NOTE | 2018-09-16 12:53 | PCM.PN.ORT ---
Patient Problems: Active and Suspected Problems Status post total replacement of left hip (Acute) Subjective: Patient is postoperative day #2 from hip replacement surgery. Doing well. Denies chest pain or shortness of breath. Planning for discharge to home today. Seen with his present. Pain adequately controlled. Doing well in therapy. Objective: Hip bandages on clean and dry. Bandage inspected with his present. Legs are neurovascular intact. No calf pain or swelling. Negative Homans sign. Good active motion toes and ankles. No deformity of the hip. Vital signs reviewed. Laboratory work reviewed. Note from hospitalist reviewed - Physical Exam Vital Signs Temp Pulse Resp BP Pulse Ox 98 F 91 16 158/81 H 94 09/16/18 10:39 09/16/18 10:39 09/16/18 10:39 09/16/18 10:39 09/16/18 10:39 Oxygen Delivery Method Room Air Weight: 73.9 kg Body Mass Index (BMI) 27.1 Finger Stick Blood Glucose 90 Intake and Output for Last 24 Hours 09/14/18 09/15/18 09/16/18 23:59 23:59 23:59 Intake Total 2674 / 2674 746 / 746 Balance 2674 / 2674 746 / 746 Laboratory Tests Past 24 Hrs 09/16/18 05:40 WBC 11.6 H RBC 4.06 L Hgb 12.5 L Hct 37.6 L MCV 92.6 MCH 30.8 MCHC 33.2 RDW 14.1 RDW Differential 46.4 H Plt Count 187 MPV 12.7 H POC Glucose 09/16/18 09/16/18 09/15/18 11:50 06:31 22:00 POC Glucose 172 H 177 H 132 H 09/15/18 17:02 POC Glucose 135 H Medical Necessity - Tobacco Use Smoking Status: Never smoker Assessment/Plan All Active Problems Status post total replacement of left hip (Acute) Postoperative day #2 left total hip replacement continue therapy, weightbearing as tolerated left hip. Continue hip dislocation precautions. MARTY braxtone SCDs and aspirin for DVT prevention. Continue preop medications for multiple medical problems including diabetes. plan discharged home today. All of his questions answered.
--- NOTE | 2018-09-16 13:23 | DCINST_ITS ---
Discharge Diet: 1800 Calorie Control Diet Discharge Activity: May Not Drive - while taking narcotic pain medications., May not drive while taking narcotic pain medications., Use Walker May shower in (days): 2 - only if incision is dry and without drainage. Do NOT soak/submerge in tub/pool/garcia/stream/hot tub. Ok to shower over meplex dressing. Ice area for (Minutes): 20 - every hour as needed Weight Bearing Status: Weight bearing as tolerated Elevate: Operative Extremity Additional Activity Instructions:: Wear elastic stockings for 2 weeks. DO NOT use alcohol with narcotic pain medication. DO NOT make important decisions while taking narcotic medication. If you have problems with taking your medication (rash, itching, nausea, etc.) call the office at once. SEE POST OP PINK SHEET Call your doctor if your incision/area has: Increased Pain/ Swelling, Increased Redness, Foul Smelling Discharge Call your doctor if you observe: Fever of 101 or Higher, Coldness, Increased Pain, Numbness or Tingling, Inability to have a bowel movement, Shortness of breath, Dizziness, Chest pain, Calf discomfort, Uncontrolled pain Remove Dressing in (days):: 5 Cleanse incision/area with: Soap & Water Additional Dressing/Incision Instructions:: SEE POST OP PINK SHEET Allergies/Adverse Reactions: Allergies Sulfa (Sulfonamide Antibiotics) Allergy (Verified 09/14/18 11:19) Rash Medications to take at Discharge Amlodipine Besylate [Norvasc] 10 mg PO DAILY 11/05/16 Enalapril Maleate [Vasotec] 20 mg PO BID 11/05/16 Levothyroxine [Synthroid] 50 mcg PO QHS 11/05/16 Multivitamin [Multiple Vitamins] 1 each PO DAILY 11/05/16 Calcium Carbonate/Vitamin D3 [Calcium 600-Vit D3 200 Tablet] 1 each PO DAILY 11/13/16 Acetaminophen [Tylenol Extra Strength] 500 - 3,000 mg PO DAILY 08/27/18 Atorvastatin Calcium [Lipitor] 10 mg PO DAILY 08/27/18 Metformin HCl [Glucophage Xr] 500 mg PO DAILY 08/27/18 Amlodipine [Norvasc] 10 mg PO DAILY tablet 09/16/18 Aspirin 325 mg PO BID #28 tablet 09/16/18 Lisinopril [Zestril] 20 mg PO BID tablet 11/21/18 Oxycodone [Oxyir] 5 - 10 mg PO Q4H PRN PRN 7 Days #56 tablet 09/16/18 Senna/Docusate Sodium [Senokot-S] 2 tablet PO BID #30 tablet 09/16/18 morphine SR tablet [Ms Contin] 15 mg PO BID 7 Days #14 tablet 09/16/18 The following prescriptions were given: Oxycodone [Oxyir] 5 - 10 mg PO Q4H PRN PRN 7 Days #56 tablet PRN Reason: Mod-Severe Pain (-08/05) Aspirin 325 mg PO BID #28 tablet morphine SR tablet [Ms Contin] 15 mg PO BID 7 Days #14 tablet Senna/Docusate Sodium [Senokot-S] 2 tablet PO BID #30 tablet Primary Care Physician: Hugo Ruvalcaba MD [Primary Care Provider] - Test Results: Test results from this visit will be discussed in further detail at your follow- up appointment, if applicable.
[2018-09-16 13:55] VITALS: BP 140/72; PULSE 98; RESP 16; TEMP 37.2; O2SAT 98
== END 2018-09-16 15:29 | disposition home or self-care (01) | DRG 470 ==
PROVIDERS: Anesthesiology; Admitting Provider Orthopaedic Surgery; Family Provider Family Medicine; PCP Family Medicine; Referring Provider Orthopaedic Surgery; Visit Provider Student in an Organized Health Care Education/Training Program
PROC: 0SRB0JZ Replacement of Left Hip Joint with Synthetic Substitute, Open Approach (ICD-10-PCS; CPT 27130; principal; 2018-09-14 12:35)
DX: M16.12 Unilateral primary osteoarthritis, left hip (principal); E11.9 Type 2 diabetes mellitus without complications; I10 Essential (primary) hypertension; E87.6 Hypokalemia; E78.5 Hyperlipidemia, unspecified; E03.9 Hypothyroidism, unspecified; Z85.528 Personal history of other malignant neoplasm of kidney; Z85.46 Personal history of malignant neoplasm of prostate; Z79.899 Other long term (current) drug therapy; Z90.5 Acquired absence of kidney; Z79.84 Long term (current) use of oral hypoglycemic drugs
CPT/HCPCS: 36415; 71046; 73502; 80048; 82962; 83036; 84443; 85027; 87081; 88305; 88311; 93005; 97110; 97116; 97162; 97166; 97530; 97802; C1776; J7120; A4216; J2405

== ENCOUNTER → 2019-02-02 | Outpatient (CLI) | payer MEDICARE, SELFPAY ==
[2018-09-14 16:47] VITALS: BMI 27.1
[2019-02-02 10:26] LABS: PSA,Total- Diagnostic < 0.01 ng/mL (0.0-4.0)
== END | disposition home or self-care (01) ==
LOC: LAB 08:48
PROVIDERS: Family Provider Family Medicine; PCP Family Medicine; Referring Provider Urology; Visit Provider Urology
DX: C61 Malignant neoplasm of prostate (principal)
CPT/HCPCS: 36415; 84153

== ENCOUNTER → 2019-03-01 08:15 | Outpatient (CLI) | payer MEDICARE, SELFPAY ==
[2018-09-14 16:47] VITALS: BMI 27.1
[2019-03-01 09:33] LABS: Anion Gap 3 (5-15); BUN 12 mg/dL (7-18); BUN/Creat Ratio 13.3 RATIO (10-20); Calcium,Total 8.7 mg/dL (8.5-10.1); Chloride 108 mmol/L (98-107); Cholesterol 156 mg/dL (200); EST Glomerular Filtration Rate 89 mL/min (>60); Est Glom Filt Rate - Afr Amer 107 mL/min (>60); Glucose 111 mg/dL (74-106); High Density Lipoprotein 40 mg/dL; Potassium 3.3 mmol/L (3.5-5.1); Sodium Level 139 mmol/L (136-145); Thyroid Stim Hormone (TSH) 0.94 uIU/mL (0.358-3.74); Triglycerides 116 mg/dL; Very Low Density Lipoprotein 23 mg/dL (5-40)
== END ==
PROVIDERS: Family Provider Family Medicine; PCP Family Medicine; Referring Provider Family Medicine; Visit Provider Family Medicine
DX: I10 Essential (primary) hypertension (principal); E03.9 Hypothyroidism, unspecified; E11.9 Type 2 diabetes mellitus without complications
CPT/HCPCS: 36415; 80048; 80061; 84443

== ENCOUNTER 2019-04-27 14:48 | Emergency (ER) | payer MEDICARE, SELFPAY ==
[2018-09-14 16:47] VITALS: BMI 27.1
[2019-04-27 14:49] VITALS: BP 153/71; PULSE 97; RESP 16; TEMP 36.7; O2SAT 94; BMI 27.3
--- NOTE | 2019-04-27 15:10 | ED.VISSUMM ---
- ER Visit Summary Date of Service: 04/27/19 Chief Complaint: Right chest wall pain History of Present Illness: The patient is a 68 M presenting with right lower rib pain. Patient states that he was getting into the bathtub. He states he was on his knees and trying to shift his weight to sit down. He states he slipped and fell hitting his right lower back on the side of the bathtub. He did not hit his head or lose consciousness. He is not on anticoagulants. He took Tylenol at home which has improved his pain. He denies shortness of breath. Denies other injury. Physical Examination: Vitals are stable. Patient is afebrile. Alert no acute distress. HEENT exam is unremarkable. Neck is supple. Lungs are clear and equal bilaterally. Right posterior lateral chest wall tenderness with no crepitus Heart is regular rate and rhythm. Abdomen is soft nontender nondistended. No guarding or rebound Extremities are unremarkable. Skin is warm and dry. Remainder of exam is unremarkable. Emergency Department Course and Treatment: Patient declined pain medications in the ED. Right rib series shows likely nondisplaced right lateral ninth rib fracture. Patient was given an incentive spirometer. He declined pain medication for home and says he has leftover prescription pain medicine. Advised to follow-up with primary care physician. Advised return to ED for worsening complaints. Disposition: Discharge home Impression: Nondisplaced right ninth rib fracture This note was generated with [employer] dictation software. It may contain incorrect words, spelling, and punctuation that were not noted in review of the chart prior to signing ED Disposition - Plan for ED Patient: Instructions: FRACTURE, Rib Referrals: Hugo Ruvalcaba MD [Primary Care Provider] -
--- NOTE | 2019-04-27 15:45 | RAD_ITS ---
STUDY: X-RAY - UNILATERAL RIBS ( RIGHT ) WITH CHEST REASON FOR EXAM: Male, 68 years old. Right rib pain TECHNIQUE - RIBS: 4 view(s) of the ribs. TECHNIQUE - CHEST: COMPARISON: Chest radiograph 08/27/2018. FINDINGS - RIBS: There is cortical irregularity of the right lateral ninth rib. There is no pneumothorax. FINDINGS - CHEST: The lungs are clear and expanded. There is no demonstrated pleural abnormality. Normal size heart. Normal mediastinum and carlo. Normal visualized pulmonary arteries. Normal visualized aortic arch and descending thoracic aorta. There is no demonstrated abnormality of the visualized soft tissue structures of the upper abdomen. RAD/Ribs Uni Min 3V w/PA Chest IMPRESSION: RIBS: Likely nondisplaced right lateral ninth rib fracture CHEST: Normal x-ray examination of the chest. Electronically Signed: Tyler Reis, at 16:10 EDT Tel , Service support ,
--- NOTE | 2019-04-27 16:34 | ED.DEP ---
ED Disposition - Plan for ED Patient: Instructions: FRACTURE, Rib Referrals: Hugo Ruvalcaba MD [Primary Care Provider] -
== END 2019-04-27 16:45 | disposition home or self-care (01) ==
PROVIDERS: Emergency Provider Emergency Medicine; Family Provider Family Medicine; PCP Family Medicine
DX: S22.31XA Fracture of one rib, right side, initial encounter for closed fracture (principal); W18.2XXA Fall in (into) shower or empty bathtub, initial encounter; Y93.89 Activity, other specified; Y92.9 Unspecified place or not applicable
CPT/HCPCS: 71101; 99282

== ENCOUNTER 2019-06-10 17:23 | Emergency (ER) | payer MEDICARE, SELFPAY ==
[2019-06-10 17:24] VITALS: BP 152/78; PULSE 81; RESP 18; TEMP 36.6; O2SAT 96; BMI 26.6
--- NOTE | 2019-06-10 17:43 | EKG12_ITS ---
Test Reason : NEAR-SYNCOPE Blood Pressure : / mmHG Vent. Rate : 078 BPM Atrial Rate : 078 BPM P-R Int : 162 ms QRS Dur : 104 ms QT Int : 376 ms P-R-T Axes : 068 -27 037 degrees QTc Int : 428 ms Normal sinus rhythm Voltage criteria for left ventricular hypertrophy Abnormal ECG Confirmed by VEL ALLEN, EMIR ([id number]), editor index MILTON FERMIN ([id number]) on 06/14/2019 1:21:39 PM Referred By: HAKEEM/ANDRA Confirmed By:OZZIE CROWDER MD
[2019-06-10 17:51] VITALS: BP 154/75; PULSE 76; RESP 16; O2SAT 95
[2019-06-10] MEDS: 0.9% Normal Saline 1,000 ML 1000 ML IV (17:54)
[2019-06-10 18:01] LABS: Red Blood Count 5.05 M/mm3 (4.6-6.2); White Blood Count 7.8 K/mm3 (4.4-11.0)
[2019-06-10 18:02] LABS: Absolute Lymphocyte Count 3.02 X10^3/uL (0.83-4.51); Absolute Neutrophil Count 3.8 X10^3/uL (2.0-7.7); Basophil# 0.06 X10^3/uL; Basophil% 0.8 % (0-1); Eosinophil# 0.14 X10^3/uL; Eosinophils% 1.8 % (0-5); Hematocrit 45.2 % (40-54); Lymphocyte # 3.02 X10^3/ul (4.0); Lymphocyte % 38.9 % (19-41); Mean Corp Hgb Conc 33.2 g/dL (32-36); Mean Corpuscular Hgb 29.7 pg (27.0-32.0); Mean Corpuscular Volume 89.5 fL (80-94); Mean Platelet Vol. 12.8 fl (6.2-12.0); Monocyte# 0.71 X10^3/uL; Monocyte% 9.1 % (0-10); NRBC Flagged by Analyzer 0 % (0-5); Neutrophil # 3.81 X10^3/uL (2.7-7.7); Neutrophil % 49.1 % (47-70); Platelet Count 229 K/mm3 (150-450); RBC Distribution Width SD 45.6 fl (35.1-43.9)
--- NOTE | 2019-06-10 18:20 | RAD_ITS ---
STUDY: X-RAY CHEST REASON FOR EXAM: Male, 68 years old. Chest pain TECHNIQUE: PA and lateral views of the chest. COMPARISON: 04/27/2019 FINDINGS: The lungs are clear and expanded. There is no demonstrated pleural abnormality. Normal size heart. Normal mediastinum and carlo. Normal visualized pulmonary arteries. Normal visualized aortic arch and descending thoracic aorta. Normal visualized thoracic spine. Normal visualized ribs, clavicles, and shoulders. There is no demonstrated abnormality of the visualized soft tissue structures of the upper abdomen. RAD/Chest PA and Lateral IMPRESSION: Normal x-ray examination of the chest. Electronically Signed: Иван Flores DO at 18:52 EDT Tel , Service support ,
[2019-06-10 18:26] LABS: Anion Gap 4 (5-15); BUN 21 mg/dL (7-18); Calcium,Total 9.8 mg/dL (8.5-10.1); Chloride 108 mmol/L (98-107); Creatinine, Serum 1.05 mg/dL (0.70-1.30); EST Glomerular Filtration Rate 74 mL/min (>60); Est Glom Filt Rate - Afr Amer 90 mL/min (>60); Estimated Creatinine Clearance 57.76 ml/min; Glucose 124 mg/dL (74-106); Potassium 4.1 mmol/L (3.5-5.1); Sodium Level 142 mmol/L (136-145)
--- NOTE | 2019-06-10 18:37 | ED.DCSUM_ITS ---
History of Present Illness Chief Complaint: Syncope Narrative: Patient presenting for evaluation from primary care office secondary to a near syncopal episode. Patient reports that he was mowing the grass today and suffered a near syncopal episode. He reports that he uses a standing riding lawnmower, and after he went around a corner he started to feel significantly lightheaded, and generally numb, and he states that he almost passed out. He reports that he did not completely pass out, and during the episode he denies that he was having any sort of chest pain palpitations or shortness of breath. Patient reports that he was able to get himself off of the lawnmower inside, rest, hydrate and that he did have improvement and complete resolution of his symptoms. Patient states that about 6 weeks ago he suffered a fall and a broken rib, so he is somewhat deconditioned and this is the first time that he has been out mowing or doing anything physical. Patient has an underlying history of hypertension and diabetes but no history of MS or cardiac arrhythmia. No history or risk factors of DVT or PE. Review of systems otherwise negative. Past Medical History - Allergies and Home Meds Allergies/Adverse Reactions: Allergies Sulfa (Sulfonamide Antibiotics) Allergy (Verified 06/10/19 17:26) Rash Primary Care Physician: Hugo Ruvalcaba MD [Primary Care Provider] - Past Medical History: - - Hypertension and diabetes Surgical History: - - Left nephrectomy, back surgery. Smoking Status: Never smoker - Family History Maternal Family History: Reports: - - No maternal history of hypertension, diabetes or heart disease. Paternal Family History: Reports: - - No paternal history of hypertension, diabetes or heart disease. Review of Systems All systems negative except as indicated General: Denies: Fever Cardiovascular: Denies: Chest pain, Palpitations Respiratory: Denies: Dyspnea Neurological: Reports: - - Syncope Physical Exam Vital Signs/Narrative: Vital Signs Temp Pulse Resp BP Pulse Ox 06/10/19 17:51 76 16 154/75 H 95 06/10/19 17:24 98 F 81 18 152/78 H 96 General: Well nourished, Well developed, No Acute Distress Head: Normocephalic, Atraumatic Eyes: Perrl, EOMI ENT: Moist mucous membranes, No rhinorrhea Neck: Supple, Nontender Cardiovascular: Regular rate, Regular rhythm, No murmurs Respiratory: No distress, CTA bilaterally, Chest nontender Abdomen: Soft, Nontender, Nondistended, Normal bowel sounds Back: Nontender, Normal Inspection Extremities: Nontender, No edema Skin: Normal color, No rash Neurological: Alert, Oriented x3, Cranial nerves II-XII grossly intact, Normal Strength, Normal Sensation Psychological: Normal affect, Normal Mood Diagnostic/Tx/Re-eval - EKG Initial EKG Interpretation: - - Sinus rhythm at [address] segments normal T waves. There is some evidence of LVH. Normal KS and QTc intervals. No evidence of acute ischemia or arrhythmia. - Medical Decision Making Patient presented secondary to a near syncopal episode. CBC chemistry and troponin were found to be unremarkable. EKG shows no signs of ischemia or arrhythmia. Patient's chest x-ray was found to be unremarkable by radiology my personal review. Patient was stable in the emergency department. Patient is negative by the [place] syncope rules. I do not believe that he requires admission. I believe that the patient likely had an element of being overheated and somewhat deconditioned as he has not been doing much since he broke his rib. I do not believe he requires admission or observation at this point. Patient was given reassurance and discharged. ED Disposition - Plan for ED Patient: Disposition: Home or Assisted Living Diagnosis: Near syncope Instructions: NEAR SYNCOPE, Unknown Referrals: Hugo Ruvalcaba MD [Primary Care Provider] - 1-2 Weeks
[2019-06-10 18:40] VITALS: BP 154/80; PULSE 71; RESP 18; O2SAT 97
[2019-06-10 19:19] VITALS: O2SAT 98
[2019-06-10 19:33] VITALS: BP 156/76; PULSE 73; RESP 16; O2SAT 96
== END 2019-06-10 19:35 | disposition home or self-care (01) ==
PROVIDERS: Emergency Provider Emergency Medicine; Family Provider Family Medicine; PCP Family Medicine
DX: R55 Syncope and collapse (principal); I10 Essential (primary) hypertension; E11.9 Type 2 diabetes mellitus without complications; Z79.84 Long term (current) use of oral hypoglycemic drugs; Z79.82 Long term (current) use of aspirin; Z79.899 Other long term (current) drug therapy
CPT/HCPCS: 71046; 80048; 84484; 85025; 93005; 96360; 99284; J7030; A4216

== ENCOUNTER → 2019-08-03 09:45 | Outpatient (CLI) | payer MEDICARE, SELFPAY ==
[2019-08-03 12:14] LABS: PSA,Total- Diagnostic 0.01 ng/mL (0.0-4.0)
== END ==
PROVIDERS: Family Provider Family Medicine; PCP Family Medicine; Referring Provider Urology; Visit Provider Urology
DX: C61 Malignant neoplasm of prostate (principal)
CPT/HCPCS: 36415; 84153

== ENCOUNTER → 2019-09-02 08:00 | Outpatient (CLI) | payer MEDICARE, SELFPAY ==
[2019-09-02 10:09] LABS: Anion Gap 7 (5-15); BUN 16 mg/dL (7-18); BUN/Creat Ratio 16.7 RATIO (10-20); Calcium,Total 9.2 mg/dL (8.5-10.1); Chloride 104 mmol/L (98-107); Creatinine, Serum 0.96 mg/dL (0.70-1.30); EST Glomerular Filtration Rate 82 mL/min (>60); Est Glom Filt Rate - Afr Amer 100 mL/min (>60); Free T3 2.5 pg/mL (2.18-3.98); Glucose 118 mg/dL (74-106); Potassium 3.2 mmol/L (3.5-5.1); Sodium Level 141 mmol/L (136-145); T4 Total, Thyroxin 10.4 ug/dL (4.5-12.1); Thyroid Stim Hormone (TSH) 0.93 uIU/mL (0.358-3.74)
== END ==
PROVIDERS: Family Provider Family Medicine; PCP Family Medicine; Referring Provider Family Medicine; Visit Provider Family Medicine
DX: E03.9 Hypothyroidism, unspecified (principal); I10 Essential (primary) hypertension
CPT/HCPCS: 36415; 80048; 84436; 84443; 84481

== ENCOUNTER → 2020-03-04 07:50 | Outpatient (CLI) | payer MEDICARE, SELFPAY ==
[2020-03-04 08:48] LABS: Anion Gap 8 (5-15); BUN 13 mg/dL (7-18); BUN/Creat Ratio 12.6 RATIO (10-20); Chloride 107 mmol/L (98-107); Cholesterol 172 mg/dL (200); Creatinine, Serum 1.03 mg/dL (0.70-1.30); EST Glomerular Filtration Rate 76 mL/min (>60); Est Glom Filt Rate - Afr Amer 92 mL/min (>60); Glucose 157 mg/dL (74-106); High Density Lipoprotein 38 mg/dL; PSA,Total- Diagnostic < 0.01 ng/mL (0.0-4.0); Potassium 3.3 mmol/L (3.5-5.1); Sodium Level 143 mmol/L (136-145); Thyroid Stim Hormone (TSH) 0.92 uIU/mL (0.358-3.74); Triglycerides 168 mg/dL; Very Low Density Lipoprotein 34 mg/dL (5-40)
== END ==
PROVIDERS: PCP Family Medicine; Referring Provider Urology; Visit Provider Urology
DX: C61 Malignant neoplasm of prostate (principal); E03.9 Hypothyroidism, unspecified; I10 Essential (primary) hypertension
CPT/HCPCS: 36415; 80048; 80061; 84153; 84443

== ENCOUNTER → 2020-06-01 09:44 | Outpatient (CLI) | payer MEDICARE, SELFPAY ==
[2020-06-01 13:05] LABS: BUN 16 mg/dL (7-18); BUN/Creat Ratio 15.4 RATIO (10-20); Calcium,Total 9.1 mg/dL (8.5-10.1); Chloride 104 mmol/L (98-107); Creatinine, Serum 1.04 mg/dL (0.70-1.30); EST Glomerular Filtration Rate 75 mL/min (>60); Est Glom Filt Rate - Afr Amer 91 mL/min (>60); Glucose 184 mg/dL (74-106); Potassium 3.4 mmol/L (3.5-5.1); Sodium Level 139 mmol/L (136-145)
[2020-06-01 13:06] LABS: Anion Gap 7 (5-15)
== END ==
PROVIDERS: PCP Family Medicine; Referring Provider Family Medicine; Visit Provider Family Medicine
DX: E11.9 Type 2 diabetes mellitus without complications (principal)
CPT/HCPCS: 36415; 80048

== ENCOUNTER → 2020-07-04 09:42 | Outpatient (CLI) | payer MEDICARE, SELFPAY ==
[2020-07-04 12:31] LABS: Anion Gap 4 (5-15); BUN 16 mg/dL (7-18); BUN/Creat Ratio 15.1 RATIO (10-20); Chloride 106 mmol/L (98-107); Creatinine, Serum 1.06 mg/dL (0.70-1.30); EST Glomerular Filtration Rate 73 mL/min (>60); Est Glom Filt Rate - Afr Amer 89 mL/min (>60); Glucose 150 mg/dL (74-106); Potassium 3.6 mmol/L (3.5-5.1); Sodium Level 140 mmol/L (136-145)
== END ==
PROVIDERS: PCP Family Medicine; Referring Provider Family Medicine; Visit Provider Family Medicine
DX: E87.6 Hypokalemia (principal)
CPT/HCPCS: 36415; 80048

== ENCOUNTER → 2020-08-29 08:13 | Outpatient (CLI) | payer MEDICARE, SELFPAY ==
[2020-08-29 10:21] LABS: Cholesterol 159 mg/dL (200); High Density Lipoprotein 41 mg/dL; Thyroid Stim Hormone (TSH) 0.86 uIU/mL (0.358-3.74); Triglycerides 125 mg/dL; Very Low Density Lipoprotein 25 mg/dL (5-40)
== END ==
PROVIDERS: PCP Family Medicine; Referring Provider Family Medicine; Visit Provider Family Medicine
DX: Z00.00 Encounter for general adult medical examination without abnormal findings (principal); E03.9 Hypothyroidism, unspecified
CPT/HCPCS: 36415; 80061; 84443

== ENCOUNTER 2020-09-20 07:40 | Day surgery (SDC) | payer MEDICARE, SELFPAY ==
[2020-09-04 09:27] VITALS: BMI 28.2
--- NOTE | 2020-09-20 07:00 | HP_ITS ---
Intake Vital Signs 09/04/20 Height 5 ft 5 in 09/04/20 Weight: 169 lb 7 oz 09/04/20 BMI 28.2 09/04/20 BP 165/75 H 09/04/20 Blood Pressure Location Rt brachial 09/04/20 Position Sitting 09/04/20 Respiration 20 H 09/04/20 Pulse 80 09/04/20 Pulse Source NIBP 09/04/20 Temp 98.1 F 09/04/20 Temp Source Temporal 09/04/20 Pulse Oximetry (%) 97 09/04/20 Oxygen Delivery Method room air Intake Visit Reasons: CSCOPE Chief Complaint: pain to left hip- no cartiledge left per pt Allergies Sulfa (Sulfonamide Antibiotics) Allergy (Verified 09/04/20 09:27) Rash Medications Amlodipine Besylate [Norvasc] 10 mg PO DAILY 11/05/16 [History Confirmed 09/04/20] Enalapril Maleate [Vasotec] 20 mg PO BID 11/05/16 [History Confirmed 09/04/20] Levothyroxine [Synthroid] 50 mcg PO QHS 11/05/16 [History Confirmed 09/04/20] Multivitamin [Multiple Vitamins] 1 ea PO DAILY 11/05/16 [History Confirmed 09/04/20] Calcium Carbonate/Vitamin D3 [Calcium 600-Vit D3 200 Tablet] 1 ea PO DAILY 11/13/16 [History Confirmed 09/04/20] Acetaminophen [Tylenol Extra Strength] 500 - 1,000 mg PO DAILY 08/27/18 [History Confirmed 09/04/20] Atorvastatin Calcium [Lipitor] 10 mg PO DAILY 08/27/18 [History Confirmed 09/04/20] Metformin HCl [Glucophage Xr] 500 mg PO DAILY 08/27/18 [History Confirmed 09/04/20] Aspirin 81 mg PO DAILY 06/10/19 [History Confirmed 09/04/20] potassium chloride 20 mEq tablet,extended release 20 meq PO BID tab 09/04/20 [History Confirmed 09/04/20] [facility] Medical History History of prostate cancer (Chronic) History of renal cell carcinoma (Chronic) Hyperlipidemia (Chronic) Type 2 diabetes mellitus (Chronic) Hypothyroidism (Chronic) Hypertension (Chronic) Anxiety (Acute) GERD (gastroesophageal reflux disease) (Acute) History of thyroid cancer (Acute) Surgical History Status post total replacement of left hip (Acute) History of appendectomy (Acute) History of colonoscopy (Acute ~2010) History of kidney removal (Acute) History of partial thyroidectomy (Acute) History of prostatectomy (Acute) History of tonsillectomy (Acute) Social History (Updated 09/04/20 @ 09:[address] Arthur Banuelos MD) Smoking Status: Never smoker HPI HPI Surgical H&P: Yes HPI: GLENDA DERAS, is a 69 M who presents to the office today for Evaluation for endoscopy. It has been greater than 10 years since he has had a colonoscopy this was done by Dr. Tapia and was reportedly negative. He has had no problems with his bowel movements he has not been noticing any blood. The patient does have only one kidney. ROS General General: Yes weight change; no appetite, fatigue, colon cancer, breast cancer or weakness HEENT HEENT: No difficulty swallowing, eye injury, eye surgery, swollen glands or hoarseness Endo Endocrine: Yes thyroid disease and diabetes mellitus; no thyroid cancer, Hair loss, heat intolerance or cold intolerance Musc Musculoskeletal: Yes back problems and arthritis; no rheumatoid arthritis, gout or joint pain Cardio Cardiovascular: No murmur, pacemaker, heart disease, atrial fibrillation, high blood pressure, heart attack, heart stent, palpitations, shortness of breat with exertion or chest pain Psych Psychiatric: Yes anxiety; no depression or hearing voices Resp Respiratory: No shortness of breath, Yes sleep apnea, No cough, No COPD, No asthma, No emphysema, No wheezing Gastro Gastrointestinal: No abdominal pain, No nausea or vomiting, No diarrhea, No constipation, No blood in stool, Yes acid reflux, No hemorrhoids, No ulcers, No gallbladder problem, No black,tarry stools Nickolas Hematologic: Yes blood thinners, No blood disorders, No bleeding, No anemia, No blood clots Neuro Neurologic: No weakness Exam Const General: no acute distress, well developed, well hydrated Orientation: oriented to person, oriented to place, oriented to time [facility] Head: normocephalic, atraumatic Ears: external ears normal Mouth: moist mucous membranes Eyes Sclera: sclerae normal Pupils: normal by confrontation Neck Neck: no lymphadenopathy noted Neck mass: No Thyroid: thyroid normal, symmetrical Chest Chest palpation & inspection: normal inspection of the chest Resp Effort & Inspection: normal respiratory effort Auscultation: clear to auscultation bilaterally Percussion: percussion normal Cardio Rate: regular rate Rhythm: regular rhythm Heart Sounds: no murmurs GI Palpation: soft, no hepatosplenomegaly, no masses, nontender Rectal Exam: other Other: Rectal exam deferred. Extrem General: normal to inspection, no clubbing, cyanosis or edema Assessment & Plan Problems 1. Encounter for screening colonoscopy Z12.11 Plan I have discussed the above with the patient. I have offered the patient colonoscopy for evaluation. I have explained the risks/benefits of the procedure and described the procedure. I have discussed the risks with the patient, including but not limited to: infection, bleeding, perforation of the GI tract requiring emergency surgery, inability to complete the procedure, injury to any internal organs, complications of anesthesia, etc. - the patient understands and agrees to proceed. I have answered all the patient's questions to the patient's satisfaction and the patient has no further questions. The patient has been given instructions for the colon cleansing preparation. We will use GoLYTELY for his prep. Orders Orders: Colonoscopy Today Coding Level of Care Code Off vis,new,level 3 Diagnoses Encounter for screening colonoscopy Z12.11 COVID (Procedure Consent) Procedure Criteria Procedure Criteria: Yes Elective I have re-examined the patient. There are no clinical changes since date of exam.
--- NOTE | 2020-09-20 08:00 | COLBX_PTH ---
PATIENT: GLENDA DERAS LOC: EN U#:[id number] AGE/SX: 69/M ROOM: RE09/20/[address]: Dr. Arthur Banuelos MD : 1950 BED: DIS: 09/20/2020 SPEC #: [id number] RECD: 09/20/20 12:13 STATUS: JENNIFER VANESSA #: [id number] JEFF: 09/20/20 08:[address]: Arthur Banuelos DEPT: SURGICAL PATHOLOGY RECD BY: Selam Hebert ENTERED: 09/20/20 13:31 SP TYPE: COLON BX OTHR DR: Dr. Hugo Ruvalcaba MD Tissues: A - Descending colon B - Rectum, NOS Procedures: Surgery Specimen Level IV HEADER OPERATION: Colonoscopy (MAC) PRE-OP DIAGNOSIS: Screening TISSUE SUBMITTED: A - Descending polyp biopsy, B - Rectum polyp biopsy MICROSCOPIC DIAGNOSIS A. Descending colon polyp, biopsy: Hyperplastic polyp. B. Rectum polyp, biopsy: Hyperplastic polyp. SJ:idris 09/22/20 MICROSCOPIC DESCRIPTION Slides are reviewed. GROSS DESCRIPTION A - Received in fixative is one container labeled with the patient's name and designated descending polyp biopsy. The specimen consists of Negative for Helicobacter pylori organisms.0.3 x 0.3 x 0.1 cm. The specimen is totally submitted in one cassette. B - Received in fixative is one container labeled with the patient's name and designated rectum polyp biopsy. The specimen consists of one irregular fragment of light justice soft tissue that measures 0.4 x 0.4 x 0.1 cm. The specimen is totally submitted in one cassette. / LYNETTE:idris 09/20/20 TC:1 CPT: 50953 x2
[2020-09-20 08:01] VITALS: BP 149/74; PULSE 98; RESP 18; TEMP 36.3; O2SAT 98; BMI 27.6
[2020-09-20] MEDS: Lactated Ringers 1,000 ML 100 ML IV (08:13)
[2020-09-20 08:41] LABS: Bedside Glucose 111 mg/dL (70-110)
--- NOTE | 2020-09-20 08:55 | OP.COLON_ITS ---
Patient Name: Tyler Olivia Procedure Date: 09/20/2020 8:26 AM Date of : 1950 Age: 69 Procedure: Colonoscopy Indications: Screening for colorectal malignant neoplasm Providers: Arthur Banuelos MD Referring MD: Arthur Banuelos MD Medicines: See the Anesthesia note for documentation of the administered medications Patient Profile: This is a 69 year old male. Refer to note in patient chart for documentation of history and physical. Last Colonoscopy: more than 10 years ago. Complications: No immediate complications. Procedure: Pre-Anesthesia Assessment: - Prior to the procedure, a History and Physical was performed, and patient medications and allergies were reviewed. The patient's tolerance of previous anesthesia was also reviewed. The risks and benefits of the procedure and the sedation options and risks were discussed with the patient. All questions were answered, and informed consent was obtained. Prior Anticoagulants: The patient has taken aspirin, last dose was 7 days prior to procedure. ASA Grade Assessment: II - A patient with mild systemic disease. After reviewing the risks and benefits, the patient was deemed in satisfactory condition to undergo the procedure. After I obtained informed consent, the scope was passed under direct vision. Throughout the procedure, the patient's blood pressure, pulse, and oxygen saturations were monitored continuously. The adult colonoscope was introduced through the anus and advanced to the cecum, identified by appendiceal orifice and ileocecal valve. The colonoscopy was performed without difficulty. The patient tolerated the procedure well. The quality of the bowel preparation was good. Scope In: 8:36:55 AM Scope Withdrawal Time 0 hours 8 minutes 15 seconds Scope Out: 8:51:20 AM Total Procedure Duration Time 0 hours 14 minutes 25 seconds Findings: Three sessile polyps were found in the rectum and descending colon. The polyps were 2 to 3 mm in size. These polyps were removed with a jumbo cold forceps. Resection and retrieval were complete. Non-bleeding internal hemorrhoids were found during retroflexion. The hemorrhoids were Grade I (internal hemorrhoids that do not prolapse). The exam was otherwise without abnormality. Impression: - Three 2 to 3 mm polyps in the rectum and in the descending colon, removed with a jumbo cold forceps. Resected and retrieved. - Non-bleeding internal hemorrhoids. - The examination was otherwise normal. Recommendation: - Discharge patient to home. - Resume previous diet. - Continue present medications. - Await pathology results. - Repeat colonoscopy in 5 years for surveillance. - Telephone my office for pathology results in 1 week. Procedure Code(s): --- Professional --- 81932, Colonoscopy, flexible; with biopsy, single or multiple Diagnosis Code(s): --- Professional --- Z12.11, Encounter for screening for malignant neoplasm of colon K62.1, Rectal polyp D12.4, Benign neoplasm of descending colon K64.0, First degree hemorrhoids CPT copyright 2017 [employer] [employer]. All rights reserved. The codes documented in this report are preliminary and upon assistant superintendent review may be revised to meet current compliance requirements. MD Arthur Torres MD 09/20/2020 8:55:19 AM This report has been signed electronically. Number of Addenda: 0 Note Initiated On: 09/20/2020 8:26 AM
[2020-09-20 08:56] VITALS: BP 113/70; BP 149/74; PULSE 81; RESP 16; TEMP 36.6; O2SAT 94
--- NOTE | 2020-09-20 08:56 | OP.CCLET_ITS ---
09/20/2020 Hugo Ruvalcaba MD [address] [place] [address] Re : Colonoscopy procedure for Tyler Loooln Dear Dr. Ruvalcaba This procedure was performed on Sunday, September 20, 2020. My impressions and recommendations are as follows: Impressions : - Three 2 to 3 mm polyps in the rectum and in the descending colon, removed with a jumbo cold forceps. Resected and retrieved. - Non-bleeding internal hemorrhoids. - The examination was otherwise normal. Recommendations : - Discharge patient to home. - Resume previous diet. - Continue present medications. - Await pathology results. - Repeat colonoscopy in 5 years for surveillance. - Telephone my office for pathology results in 1 week. My findings are described in the full procedure note, which is enclosed. If I can be of further assistance, please feel free to contact me at Doctor phone number(s): , Fax: [phone], Work: . Sincerely, MD Arthur Torres MD 09/20/2020 8:55:19 AM This report has been signed electronically.
[2020-09-20 09:01] VITALS: BP 113/71; BP 149/74; PULSE 80; RESP 17; O2SAT 95
[2020-09-20 09:06] VITALS: BP 114/67; BP 149/74; PULSE 75; RESP 16; O2SAT 94
[2020-09-20 09:11] VITALS: BP 120/70; BP 149/74; PULSE 78; RESP 16; TEMP 36.6; O2SAT 95
[2020-09-20 09:50] VITALS: BP 149/74
== END 2020-09-20 09:50 | disposition home or self-care (01) ==
LOC: EN 07:40 → AC 07:41
PROVIDERS: PCP Family Medicine; Referring Provider Surgery; Visit Provider Surgery
PROC: 0DJD8ZZ Inspection of Lower Intestinal Tract, Via Natural or Artificial Opening Endoscopic (ICD-10-PCS; CPT 45378; principal; 2020-09-20 07:55)
DX: Z12.11 Encounter for screening for malignant neoplasm of colon (principal); K63.5 Polyp of colon; K62.1 Rectal polyp; K64.0 First degree hemorrhoids; I10 Essential (primary) hypertension; E11.9 Type 2 diabetes mellitus without complications; E78.5 Hyperlipidemia, unspecified; E03.9 Hypothyroidism, unspecified; F41.9 Anxiety disorder, unspecified; K21.9 Gastro-esophageal reflux disease without esophagitis; M19.90 Unspecified osteoarthritis, unspecified site; Z79.82 Long term (current) use of aspirin; Z79.84 Long term (current) use of oral hypoglycemic drugs; Z79.899 Other long term (current) drug therapy; Z85.46 Personal history of malignant neoplasm of prostate; Z85.53 Personal history of malignant neoplasm of renal pelvis; Z85.850 Personal history of malignant neoplasm of thyroid; Z20.828 Contact with and (suspected) exposure to other viral communicable diseases
CPT/HCPCS: 45378; 82962; 87426; 88305; C9803; J7120; J1610; J2405

== ENCOUNTER → 2020-11-29 09:40 | Outpatient (CLI) | payer MEDICARE, SELFPAY ==
[2020-11-29 10:47] LABS: Hemoglobin A1c 6.7 % (3.8-5.6)
[2020-11-29 12:03] LABS: Anion Gap 5 (5-15); BUN 18 mg/dL (7-18); BUN/Creat Ratio 17.8 RATIO (10-20); Calcium,Total 9.2 mg/dL (8.5-10.1); Chloride 108 mmol/L (98-107); Cholesterol 172 mg/dL (200); Creatinine, Serum 1.01 mg/dL (0.70-1.30); EST Glomerular Filtration Rate 77 mL/min (>60); Est Glom Filt Rate - Afr Amer 94 mL/min (>60); Glucose 225 mg/dL (74-106); High Density Lipoprotein 39 mg/dL; Potassium 3.5 mmol/L (3.5-5.1); Sodium Level 141 mmol/L (136-145); Thyroid Stim Hormone (TSH) 0.84 uIU/mL (0.358-3.74); Triglycerides 166 mg/dL; Very Low Density Lipoprotein 33 mg/dL (5-40)
== END ==
PROVIDERS: PCP Family Medicine; Referring Provider Family Medicine; Visit Provider Family Medicine
DX: E03.9 Hypothyroidism, unspecified (principal); R73.01 Impaired fasting glucose
CPT/HCPCS: 36415; 80048; 80061; 83036; 84443

== ENCOUNTER 2021-01-02 13:42 | Outpatient (RCR) | payer MEDICARE, SELFPAY ==
[2021-01-02] MEDS: COVID-19 VACC, MRNA(PFIZER)/PF 30 MCG/0.3 ML SYRINGE IM (11:42)
[2021-01-23] MEDS: COVID-19 VACC, MRNA(PFIZER)/PF 30 MCG/0.3 ML SYRINGE IM (11:37)
== END 2021-04-03 23:59 ==
LOC: IMMUN 13:42
PROVIDERS: PCP Family Medicine; Referring Provider Family Medicine; Visit Provider Family Medicine
DX: Z23 Encounter for immunization (principal)
CPT/HCPCS: 0001A; 0002A; 91300

== ENCOUNTER → 2021-03-08 15:29 | Outpatient (CLI) | payer MEDICARE, SELFPAY ==
[2021-03-08 16:42] LABS: PSA,Total- Diagnostic < 0.01 ng/mL (0.0-4.0)
== END ==
PROVIDERS: PCP Family Medicine; Referring Provider Urology; Visit Provider Urology
DX: C61 Malignant neoplasm of prostate (principal)
CPT/HCPCS: 36415; 84153

== ENCOUNTER → 2021-06-25 08:03 | Outpatient (CLI) | payer MEDICARE, SELFPAY ==
[2021-06-25 10:24] LABS: Anion Gap 6 (5-15); BUN 14 mg/dL (7-18); BUN/Creat Ratio 16.4 RATIO (10-20); Calcium,Total 8.8 mg/dL (8.5-10.1); Chloride 108 mmol/L (98-107); Cholesterol 165 mg/dL (200); Creatinine, Serum 0.85 mg/dL (0.70-1.30); EST Glomerular Filtration Rate 94 mL/min (>60); Est Glom Filt Rate - Afr Amer 113 mL/min (>60); Glucose 150 mg/dL (74-106); High Density Lipoprotein 38 mg/dL; Potassium 3.4 mmol/L (3.5-5.1); Sodium Level 142 mmol/L (136-145); Triglycerides 116 mg/dL; Very Low Density Lipoprotein 23 mg/dL (5-40)
[2021-06-25 10:33] LABS: Hemoglobin A1c 7.1 % (3.8-5.6)
== END ==
PROVIDERS: PCP Family Medicine; Referring Provider Family Medicine; Visit Provider Family Medicine
DX: I10 Essential (primary) hypertension (principal); R73.01 Impaired fasting glucose
CPT/HCPCS: 36415; 80048; 80061; 83036

== ENCOUNTER 2021-12-20 16:31 | Outpatient (CLI) | payer MEDICARE, SELFPAY ==
--- NOTE | 2021-12-20 | CYSPIN_PTH ---
PATIENT: GLENDA DERAS LOC: TIM U#:[id number] AGE/SX: 71/M ROOM: RE12/20/[address]: Dr. Kit Rosario MD : 1950 BED: DIS: 12/20/2021 SPEC #: [id number] RECD: 12/21/21 08:30 STATUS: JENNIFER MENDEZ #: [id number] JEFF: 12/20/21 00:[address]: Kit Rosario DEPT: CYTOLOGY RECD BY: Titus Dickson ENTERED: 12/21/21 08:31 SP TYPE: CYSPIN FL OTHR DR: Dr. Hugo Ruvalcaba MD Tissues: Urine Procedures: Pap Stain (control) Special Stain Group II Cytospin Fluid HEADER OPERATION: Not noted PRE-OP DIAGNOSIS: Gross hematuria TISSUE SUBMITTED: Urine for cytology DIAGNOSIS CYTOLOGY Urine for cytology (cytospin): Negative for malignant cells. See comment. LYNETTE:idris 12/24/2021 COMMENT Numerous red blood cells are noted. CYTOLOGY STUDY Slides are reviewed. CYTOLOGY GROSS Received is 60 ml of yellow cloudy fluid labeled with the patient's name and and designated per the requisition as urine. Submitted for cytology preparation. / idris 12/21/2021 TC:5 CPT: 26931
[2021-12-20 17:31] LABS: Cytology, Body Fluid / CSF SEE PATHOLOGY REPORT
== END 2021-12-20 23:59 | disposition home or self-care (01) ==
LOC: LABSPEC 16:33
PROVIDERS: PCP Family Medicine; Visit Provider Urology
DX: R31.0 Gross hematuria (principal)
CPT/HCPCS: 88108; 88313

== ENCOUNTER → 2022-01-03 08:40 | Outpatient (CLI) | payer MEDICARE, SELFPAY ==
[2022-01-03 10:34] LABS: Anion Gap 9 (5-15); BUN 13 mg/dL (7-18); Calcium,Total 9.3 mg/dL (8.5-10.1); Chloride 106 mmol/L (98-107); Cholesterol 168 mg/dL (200); EST Glomerular Filtration Rate 78 mL/min (>60); Est Glom Filt Rate - Afr Amer 94 mL/min (>60); Glucose 175 mg/dL (74-106); High Density Lipoprotein 39 mg/dL; Potassium 3.4 mmol/L (3.5-5.1); Sodium Level 140 mmol/L (136-145); Thyroid Stim Hormone (TSH) 0.94 uIU/mL (0.358-3.74); Triglycerides 150 mg/dL; Very Low Density Lipoprotein 30 mg/dL (5-40)
[2022-01-03 10:35] LABS: Hemoglobin A1c 7.7 % (3.8-5.6)
== END ==
PROVIDERS: PCP Family Medicine; Referring Provider Family Medicine; Visit Provider Family Medicine
DX: R73.01 Impaired fasting glucose (principal); I10 Essential (primary) hypertension; E03.9 Hypothyroidism, unspecified
CPT/HCPCS: 36415; 80048; 80061; 83036; 84443

== ENCOUNTER 2022-01-31 14:05 | Outpatient (CLI) | payer MEDICARE, SELFPAY ==
[2022-01-31 15:45] LABS: Anion Gap 7 (5-15); BUN 15 mg/dL (7-18); BUN/Creat Ratio 15.2 RATIO (10-20); Calcium,Total 9.5 mg/dL (8.5-10.1); Chloride 105 mmol/L (98-107); Creatinine, Serum 0.99 mg/dL (0.70-1.30); EST Glomerular Filtration Rate 79 mL/min (>60); Est Glom Filt Rate - Afr Amer 96 mL/min (>60); Glucose 129 mg/dL (74-106); Potassium 3.6 mmol/L (3.5-5.1); Sodium Level 139 mmol/L (136-145)
== END 2022-01-31 23:59 | disposition home or self-care (01) ==
LOC: LAB 14:06
PROVIDERS: PCP Family Medicine; Visit Provider Urology
DX: C64.9 Malignant neoplasm of unspecified kidney, except renal pelvis (principal)
CPT/HCPCS: 36415; 80048

== ENCOUNTER → 2022-05-16 | Outpatient (CLI) | payer MEDICARE, SELFPAY | END | disposition home or self-care (01) | LOC: MFPLAB 13:48 → LABSPEC 13:49 | PROVIDERS: PCP Family Medicine; Referring Provider Family Medicine; Visit Provider Family Medicine | DX: R19.7 Diarrhea, unspecified (principal) | CPT/HCPCS: 87493; 87506 ==

== ENCOUNTER → 2022-07-04 | Outpatient (CLI) | payer MEDICARE, SELFPAY ==
[2022-07-04 11:06] LABS: Anion Gap 8 (5-15); BUN 12 mg/dL (7-18); BUN/Creat Ratio 14.7 RATIO (10-20); Calcium,Total 9.1 mg/dL (8.5-10.1); Chloride 105 mmol/L (98-107); Cholesterol 151 mg/dL (200); Creatinine, Serum 0.82 mg/dL (0.70-1.30); EST Glomerular Filtration Rate 98 mL/min (>60); Est Glom Filt Rate - Afr Amer 119 mL/min (>60); Free T3 2.3 pg/mL (2.18-3.98); Glucose 102 mg/dL (74-106); High Density Lipoprotein 43 mg/dL; Potassium 3.2 mmol/L (3.5-5.1); Sodium Level 141 mmol/L (136-145); Thyroid Stim Hormone (TSH) 0.86 uIU/mL (0.358-3.74); Triglycerides 116 mg/dL; Very Low Density Lipoprotein 23 mg/dL (5-40)
== END | disposition home or self-care (01) ==
LOC: MTLAB 09:06
PROVIDERS: PCP Family Medicine; Referring Provider Family Medicine; Visit Provider Family Medicine
DX: I10 Essential (primary) hypertension (principal); E03.9 Hypothyroidism, unspecified
CPT/HCPCS: 36415; 80048; 80061; 84436; 84443; 84481

== ENCOUNTER → 2023-01-01 | Outpatient (CLI) | payer MEDICARE, SELFPAY ==
[2023-01-01 11:08] LABS: Anion Gap 7 (5-15); BUN 16 mg/dL (7-18); BUN/Creat Ratio 18.5 RATIO (10-20); Calcium,Total 9.4 mg/dL (8.5-10.1); Chloride 105 mmol/L (98-107); Creatinine, Serum 0.86 mg/dL (0.70-1.30); EST Glomerular Filtration Rate 92 mL/min (>60); Est Glom Filt Rate - Afr Amer 112 mL/min (>60); Free T3 2.2 pg/mL (2.18-3.98); Glucose 108 mg/dL (74-106); Potassium 3.1 mmol/L (3.5-5.1); Sodium Level 142 mmol/L (136-145); T4 Free Direct 1.32 ng/dL (0.76-1.46); Thyroid Stim Hormone (TSH) 0.76 uIU/mL (0.358-3.74)
== END | disposition home or self-care (01) ==
LOC: MFPLAB 09:19
PROVIDERS: PCP Family Medicine; Referring Provider Family Medicine; Visit Provider Family Medicine
DX: E03.9 Hypothyroidism, unspecified (principal); E78.5 Hyperlipidemia, unspecified
CPT/HCPCS: 36415; 80048; 84439; 84443; 84481

== ENCOUNTER 2023-01-16 15:14 | Outpatient (CLI) | payer MEDICARE, SELFPAY ==
[2023-01-16 18:41] LABS: Anion Gap 8 (5-15); BUN 22 mg/dL (7-18); BUN/Creat Ratio 26.7 RATIO (10-20); Calcium,Total 9.4 mg/dL (8.5-10.1); Chloride 105 mmol/L (98-107); Creatinine, Serum 0.82 mg/dL (0.70-1.30); EST Glomerular Filtration Rate 97 mL/min (>60); Est Glom Filt Rate - Afr Amer 118 mL/min (>60); Glucose 103 mg/dL (74-106); Potassium 4.1 mmol/L (3.5-5.1); Sodium Level 142 mmol/L (136-145)
== END 2023-01-16 23:59 | disposition home or self-care (01) ==
LOC: MFPLAB 15:21
PROVIDERS: PCP Family Medicine; Referring Provider Family Medicine; Visit Provider Family Medicine
DX: E88.81 Metabolic syndrome and other insulin resistance (principal)
CPT/HCPCS: 36415; 80048

== ENCOUNTER → 2023-02-03 | Outpatient (CLI) | payer MEDICARE, SELFPAY ==
[2023-02-03 13:03] LABS: PSA,Total- Diagnostic < 0.01 ng/mL (0.0-4.0)
== END | disposition home or self-care (01) ==
PROVIDERS: PCP Family Medicine; Referring Provider Registered Nurse; Visit Provider Registered Nurse
DX: C61 Malignant neoplasm of prostate (principal)
CPT/HCPCS: 36415; 84153

== ENCOUNTER → 2023-07-03 | Outpatient (CLI) | payer MEDICARE, SELFPAY ==
[2023-07-03 11:15] LABS: Anion Gap 5 (5-15); BUN 14 mg/dL (7-18); BUN/Creat Ratio 17.4 RATIO (10-20); Calcium,Total 8.9 mg/dL (8.5-10.1); Chloride 108 mmol/L (98-107); Cholesterol 151 mg/dL (200); EST Glomerular Filtration Rate 100 mL/min (>60); Est Glom Filt Rate - Afr Amer 121 mL/min (>60); Free T3 2.1 pg/mL (2.18-3.98); Glucose 101 mg/dL (74-106); High Density Lipoprotein 47 mg/dL; Potassium 3.4 mmol/L (3.5-5.1); Sodium Level 141 mmol/L (136-145); T4 Free Direct 1.23 ng/dL (0.76-1.46); Thyroid Stim Hormone (TSH) 1.05 uIU/mL (0.358-3.74); Triglycerides 100 mg/dL; Very Low Density Lipoprotein 20 mg/dL (5-40)
[2023-07-03 11:21] LABS: Hemoglobin A1c 5.5 % (3.8-5.6)
== END | disposition home or self-care (01) ==
LOC: MFPLAB 09:06
PROVIDERS: PCP Family Medicine; Visit Provider Family Medicine
DX: E78.5 Hyperlipidemia, unspecified (principal); E03.9 Hypothyroidism, unspecified; R73.01 Impaired fasting glucose
CPT/HCPCS: 36415; 80048; 80061; 83036; 84439; 84443; 84481

== ENCOUNTER 2023-11-25 19:50 | Emergency (ER) | payer MEDICARE, SELFPAY ==
[2023-11-25 19:51] VITALS: O2SAT 98
--- OUTSIDE RECORDS SUMMARY | 2023-11-25 19:59 | XMS RPT_ITS | CCD ---
Author Name Unknown Address [address] [place] [address] Organization [facility] Care Team Providers Care Agricultural Real Estate Agent Name Role Phone Srikanth Warner Unavailable Helen Hawkins Mateo Unavailable Helen Hawkins Mateo Unavailable Allergies Allergy Classification Reported Allergen(s) Allergy Type Date of Onset Reaction(s) Facility (3 sources) Sulfonamides (Antibiotic) drug allergy [address] [place] [address] [facility] Work Phone: Medications Completed/Discontinued Medications Medication Drug Class(es) Dates Sig (Normalized) Sig (Original) amLODIPine 5 mg / benazepril hydrochloride 10 mg oral capsule (3 sources) Dihydropyridine Calcium Channel Davon, Angiotensin Converting Enzyme Inhibitor Start: 03-03-2017 AMLODIPINE BESY-BENAZEPRIL HCL 5-10 MG CAPS as directed AMLODIPINE BESY-BENAZEPRIL HCL [id number] Pedro Alfredo LPN CALCIUM CARBONATE TABS (3 sources) Start: 03-03-2017 CALCIUM 600 TABS as directed CALCIUM CARBONATE TABS [id number] Pedro Alfredo TECHNICAL ASSOCIATE enalapril maleate 20 mg oral tablet (3 sources) Angiotensin Converting Enzyme Inhibitor Start: 03-03-2017 ENALAPRIL MALEATE 20 MG TABS as directed ENALAPRIL MALEATE [id number] Pedro Alfredo TECHNICAL ASSOCIATE [facility] (3 sources) Start: 03-03-2017 RED WINE COMPLEX CAPS as directed [facility] [id number] Pedro Brunerius TECHNICAL ASSOCIATE MULTIPLE VITAMINS-MINERALS (3 sources) Start: 03-03-2017 EQ COMPLETE MULTIVIT ADULT 50+ TABS as directed MULTIPLE VITAMINS-MINERALS [id number] Pedro Alfredo LPN naproxen sodium 550 mg oral tablet (3 sources) Nonsteroidal Anti-inflammatory Drug Start: 03-03-2017 NAPROXEN SODIUM 550 MG TABS as directed NAPROXEN SODIUM [id number] Pedro Alfredo LPN levothyroxine sodium 0.05 mg oral tablet (3 sources) l-Thyroxine Start: 03-03-2017 LEVOTHYROXINE SODIUM 50 MCG TABS as directed LEVOTHYROXINE SODIUM [id number] Pedro Alfredo TECHNICAL ASSOCIATE Problems Problem Classification Problem Date Documented Da te Episodic/Chronic Other connective tissue disease (2 sources) Gluteal tendinitis, left hip; Translations: [Gluteal tendinitis, left hip] Onset: 03-03-2017 03-07-2017 Episodic Other non-traumatic joint disorders (3 sources) Hip pain; Translations: [Pain in left hip] Onset: 03-03-2017 03-03-2017 Episodic Results Test Name Value Interpretation Reference Range Facil ity Vital Signs Date Time Vital Sign Value Performing Clinician Andreina faith 03-03-2017 08:44-0400 BMI (Body Mass Index) 28.29 kg/m2 [facility] Work Phone: 03-03-2017 08:44-0400 Height 165.1 cm [facility] Work Phone: 03-03-2017 08:44-0400 Weight 77.11 kg [facility] Work Phone: Plan of Treatment Date Care Activity Detail Author Start: 03-03-2017 End: 03-03-2017 X-Ray, Hip, unilateral, with pelvis; 2-3 views X-Ray, Hip, unilateral, with pelvis; 2-3 views [facility] Work Phone: Additional Source Comments FOR RECORDS PERTAINING TO PATIENTS WHO ARE OR HAVE BEEN ENROLLED IN A CHEMICAL DEPENDENCY/SUBSTANCEABUSE PROGRAM, SOME INFORMATION MAY BE OMITTED. This clinical summary was aggregated from multiple sources. Caution should be exercised in using it in the provision of clinical care. This summary normalizes information from multiple sources, and as a consequence, information in this document may materially change the coding, format and clinical context of patient data. In addition, data may be omitted in some cases. CLINICAL DECISIONS SHOULD BE BASED ON THE PRIMARY CLINICAL RECORDS. [employer]. provides no warranty or guarantee of the accuracy or completeness of information in this document.
--- NOTE | 2023-11-25 20:00 | EX.ED.CRITCA ---
HPI History of Present Illness Chief Complaint: CPR Informant: EMS Limited: other (Unresponsive) Onset/Context/Timing Onset: Today Context: Sudden Onset Timing: Continuous Narrative Narrative: Patient presents with CPR in progress. EMS was called for a fall. When they got there the patient was unresponsive on the floor. EMS started CPR initially and brought the patient to the emergency department. EMS reports patient remained in PEA and asystole during transport. EMS states there was no shockable rhythm. EMS inserted a Daniel airway. EMS continued CPR during transport and CPR was in progress on arrival to the emergency department. [facility] Medical History Anxiety GERD (gastroesophageal reflux disease) History of prostate cancer History of renal cell carcinoma History of thyroid cancer Hyperlipidemia Hypertension Hypothyroidism Type 2 diabetes mellitus Home Medications amlodipine 5 mg tablet 10 mg PO DAILY bp 11/05/16 [History Last Taken 09/20/20] enalapril maleate 20 mg tablet 20 mg PO BID bp 11/05/16 [History Last Taken 09/20/20] levothyroxine 50 mcg tablet 50 mcg PO QHS thyroid 11/05/16 [History Last Taken 11/12/16 22:00] multivitamin 1 ea PO DAILY supplement 11/05/16 [History Last Taken 11/11/16] calcium carbonate 600 mg-vitamin D3 5 mcg (200 unit) tablet 1 ea PO DAILY supplement 11/13/16 [History Last Taken 11/11/16] acetaminophen 500 mg tablet 500 - 1,000 mg PO DAILY pain 08/27/18 [History Last Taken Unknown] atorvastatin 10 mg tablet 10 mg PO DAILY cholesterol 08/27/18 [History Last Taken 09/14/18] metformin 500 mg tablet,extended release 24 hr 500 mg PO DAILY diabetes 08/27/18 [History Last Taken 09/20/20] aspirin 325 mg tablet 81 mg PO DAILY 06/10/19 [History Last Taken Unknown] potassium chloride 20 mEq tablet,extended release 20 meq PO BID 09/04/20 [History Last Taken Unknown] Allergy/AdvReac Type Severity Reaction Status Date / Time Sulfa (Sulfonamide Allergy Rash Verified 11/25/23 20:15 Antibiotics) Surgical History History of appendectomy History of colonoscopy (~2009) History of kidney removal History of partial thyroidectomy History of prostatectomy History of tonsillectomy Status post total replacement of left hip Social History Smoking Status: Never smoker ROS ROS ED Review of Systems ROS Unobtainable: due to endotracheal tube, due to mental condition and due to mental status EXAM Physical Exam Const Vital Signs: 11/25/23 19:51 11/25/23 20:25 Temperature 96.3 F L Temperature Source Temporal Oxygen Delivery Method Ambu-Bag Oxygen Flow Rate (L/min) 15 HEENT normocephalic and atraumatic Neck no JVD Resp Resp Narrative: There were no spontaneous respirations noted. Breath sounds were equal bilaterally with mechanical ventilation. Cardio Cardio Narrative: There were no heart tones auscultated. GI non-distended Neuro Neuro Narrative: Patient is unresponsive. Patient is nonverbal. MDM MDM MDM Narrative Medical decision making narrative: CPR was maintained. ACLS protocols were followed. Patient was given epinephrine and bicarbonate initially. Using a glide scope, patient was intubated with a 7.5 ET tube to 22 cm at the lip. The tube was visualized passing through the cords by myself and respiratory therapist. There was good color change on capnography. Breath sounds were equal bilaterally. Patient was given a repeat dose of epinephrine. There was no change in heart rhythm and no return of pulse. Ultrasound was used to look for cardiac activity. There is no cardiac activity noted. Patient was in PEA then progressed to asystole. There was no return of spontaneous circulation. Patient was pronounced at 1958. Procedures Intubations Intubation Method: orotracheal Intubation Verification: Positive color change and Bilateral breath sounds confirmed Intubation Complications: no complications Discharge Plan Triage Chief Complaint: CPR ED Provider: Ronald Null Dx/Rx/DC Orders Clinical Impression: Cardiopulmonary arrest, History of renal cell carcinoma, History of prostate cancer Prescriptions: No Action potassium chloride 20 mEq tablet extended release 20 meq PO BID multivitamin 1 EACH tablet 1 ea PO DAILY Patient Comments: SUPPLEMENT enalapril maleate 20 MG tablet 20 mg PO BID Patient Comments: BP amlodipine 5 MG tablet 10 mg PO DAILY Patient Comments: BP levothyroxine 50 MCG tablet 50 mcg PO QHS Patient Comments: THYROID calcium carbonate-vitamin D3 1 EACH tablet 1 ea PO DAILY atorvastatin 10 MG tablet 10 mg PO DAILY acetaminophen 500 MG tablet 500 - 1,000 mg PO DAILY metformin 500 MG tablet extended release 24 hr 500 mg PO DAILY aspirin 325 MG tablet 81 mg PO DAILY Primary Care Provider: Hugo Ruvalcaba Referrals: Hugo Ruvalcaba MD [Primary Care Provider] - Disposition Disposition: Discharge Date/Time: 11/25/23 22:39 Date/Time: 11/25/23 19:58
[2023-11-25 20:25] VITALS: TEMP 35.7; O2SAT 65
--- NOTE | 2023-11-25 21:05 | ED.RN ---
2042- Dr Davies (provisioning analyst for Dr Hurley) notified of . 2046- Yinka with automatic furnace operator office notified of . released body. 2057- [facility] notified of , released body [id number]- Peter Rich notified of family requesting their services. Crystal Finisher will call back.
--- NOTE | 2023-11-25 22:39 | ED.RN ---
PABLO VITA STAFF ARRIVE TO SCALE MECHANIC PATIENT.
== END 2023-11-25 22:39 ==
PROVIDERS: Emergency Provider Emergency Medicine; PCP Family Medicine; Visit Provider Emergency Medicine
DX: I46.9 Cardiac arrest, cause unspecified (principal); E11.9 Type 2 diabetes mellitus without complications; W19.XXXA Unspecified fall, initial encounter; Z85.46 Personal history of malignant neoplasm of prostate
CPT/HCPCS: 31500; 92950; 99281; J7030; A4216